=== PATIENT | female | born 1970 | race Caucasian/White ===

== ENCOUNTER 2022-01-16 13:56 | Outpatient (CLI) | payer BC, SELFPAY ==
--- NOTE | 2022-01-16 14:00 | CRLHL7_ITS ---
For Patients: As a result of the Century Cures Act, medical imaging exams and procedure reports are released immediately into your electronic medical record. You may view this report before your referring provider. If you have questions, please contact your health care provider. BILATERAL SCREENING MAMMOGRAM WITH COMPUTER-AIDED DETECTION AND TOMOSYNTHESIS TECHNIQUE: CC and MLO views were obtained. These mammographic images have been obtained using full-field digital technique. These mammographic images were interpreted with the benefit of computer-aided detection. Breast Tomosynthesis was used in this interpretation. COMPARISON FILM: 12/31/20, 12/06/19, 03/19/18. FINDINGS: There are scattered areas of fibroglandular density IMPRESSION: There is no radiographic evidence for malignancy. ASSESSMENT: BI-RADS Category 1: Negative RECOMMENDATION: Routine screening mammogram in 1 year. A lay language report of this examination will be provided to the patient. Gerard Walsh M.D. Diagnostic Radiologist [email or web address] NEGRO/Dictated by: Gerard Walsh MD @ 01/17/2022 8:59:00 AM (Electronically Signed)
== END 2022-01-16 13:57 | disposition home or self-care (01) ==
LOC: MAMMO 13:57
PROVIDERS: PCP Physician Assistant Medical; Visit Provider Physician Assistant Medical
DX: Z12.31 Encounter for screening mammogram for malignant neoplasm of breast (principal)
CPT/HCPCS: 77063; 77067

== ENCOUNTER 2023-02-11 10:02 | Outpatient (CLI) | payer BC, SELFPAY ==
--- OUTSIDE RECORDS SUMMARY | 2023-02-11 10:04 | XMS_ITS | Continuity of Care Document ---
Author Name Unknown Organization [facility] Address [address] [place] [address] Phone Care Team Providers Care Student Assistance Counselor Name Role Phone Yunior Logan Unavailable Unavailable Allergies, Adverse Reactions, Alerts Substance Reaction Status Criticality No Known Allergies Active No Inform ation Medications Medication Instructions Dosage Effective Dates (start - stop) Status Comments ENBREL (unknown strength) Not Available - Active XATMEP (unknown strength) Not Available - Active TRELEGY ELLIPTA (unknown strength) Not Available - Active SERTRALINE HCL (unknown strength) Not Available - Active DOXYCYCLINE MONOHYDRATE (unknown strength) Not Available - Active CELEBREX (unknown strength) Not Available - Active ALBUTEROL SULFATE (unknown strength) Not Available - Active Procedures Procedure Date Office/Outpatient Visit,[place], [facility] 2022 Advance Directives Directive Yes / No Effective Date File Name No Information Encounters Encounter Description Practice Location Reason(s) For Visit Diagnoses Date Provider Providers Copied on Encounter [facility], [address], [place], [id number], [place] tel:[phone] No Information Valeria Mojica. [facility], [address] [place] [address], [address], [place], [id number] , [place]. tel:[phone] Office/Outpat ient Visit,[facility], [address], [place], [id number], [place] tel:[phone] [facility] - Maria De Jesus Other spondylosis, lumbar regionLow back painOther intervertebral disc degeneration, lumbar region 3 Valeria Mojica. [facility], [address] [place] [address], [address], [place], [place], [id number] , [place]. tel:[phone] Referring Provider: Dong Zheng[address], [place], [address]. tel:[phone] Family History Family Member Type Diagnosis Age At Onset No Information Payers Payer name Insurance type Covered democrat ID Authoriza tishanice(s) [facility] [id number] Out Of State [id number] Social History Type Description Quantity Date Captured Comments Sex Female Smoking Status No Information Chief Complaint And Reason For Visit No Information Reason For Referral Reason For Referral No Information History Of Present Illness Encounter Date Complaint History Of Prese nt Illness No Information Functional Status Date Functional Assessmen t No Information Instructions Date Instruction Additional Infor mation No Information Assessments Type Assessment Date No Information Patient Care Teams Name Effective Dates (start - stop) Status Members No Information
--- NOTE | 2023-02-11 10:15 | CRLHL7_ITS ---
For Patients: As a result of the Century Cures Act, medical imaging exams and procedure reports are released immediately into your electronic medical record. You may view this report before your referring provider. If you have questions, please contact your health care provider. BILATERAL SCREENING MAMMOGRAM WITH COMPUTER-AIDED DETECTION AND TOMOSYNTHESIS TECHNIQUE: CC and MLO views were obtained. These mammographic images have been obtained using full-field digital technique. These mammographic images were interpreted with the benefit of computer-aided detection. Breast Tomosynthesis was used in this interpretation. COMPARISON FILM: 01/16/22, 12/31/20, 12/06/19. FINDINGS: There are scattered areas of fibroglandular density IMPRESSION: There is no radiographic evidence for malignancy. ASSESSMENT: BI-RADS Category 1: Negative RECOMMENDATION: Routine screening mammogram in 1 year. A lay language report of this examination will be provided to the patient. Gearrd Walsh M.D. Diagnostic Radiologist [email or web address] NEGRO/Dictated by: Gerard Walsh MD @ 02/11/2023 11:02:00 AM (Electronically Signed)
== END 2023-02-11 10:03 | disposition home or self-care (01) ==
LOC: MAMMO 10:02
PROVIDERS: PCP Physician Assistant Medical; Visit Provider Physician Assistant Medical
DX: Z12.31 Encounter for screening mammogram for malignant neoplasm of breast (principal)
CPT/HCPCS: 77063; 77067

== ENCOUNTER 2023-12-01 08:12 | Outpatient (CLI) | payer BC, SELFPAY ==
--- OUTSIDE RECORDS SUMMARY | 2023-12-02 06:01 | XMS_ITS | Continuity of Care Document ---
Author Organization [facility] Address [address] [place] [address] Phone Care Team Providers Care Inventory Control/Shipping Receiving Name Role Phone Yunior Logan Unavailable Unavailable [...] Available - Active Procedures Procedure Date Office/Outpatient Visit,[facility] 2022 Advance Directives Directive Yes / No Effective Date File Name No Information Encounters Encounter Description Practice Location Reason(s) For Visit Diagnoses Date Provider Providers Copied on Encounter [facility], [address], [place], [id number], [place] tel:[phone] No Information Valeria Mojica. [facility], [address], [address], [place], [id number] , [place]. tel:[phone] Office/Outpat ient Visit,[facility], [address], [place], [id number], [place] tel:[phone] [facility] - Maria De Jesus Other spondylosis, lumbar regionLow back painOther intervertebral disc degeneration, lumbar region 3 Valeria Mojica. [facility], [address], [address], [place], [place], [id number] , [place]. [phone] Referring Provider: Dong Zheng[address], [address]. tel:[phone] Family History Family Member Type Diagnosis Age At Onset No Information Payers Payer name Insurance type Covered republican ID Authoriza tishanice(s) [facility] [id number] [place] Of [place] [id number] Social History Type Description Quantity Date Captured [...]
--- OUTSIDE RECORDS SUMMARY | 2023-12-02 06:01 | XMS_ITS | Encounter Summary ---
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; Primary osteoarthritis of both first carpometacarpal joints; Lateral epicondylitis, right elbow Social History Tobacco Use Types Packs/Day Years Used Date Smoking Tobacco: Never Smokeless Tobacco: Never Alcohol Use Standard Drinks/Week Comments Yes 0 (1 standard drink = 0.6 oz pur e alcohol) Sex and Gender Information Value Date Recorded Sex Assigned at Not on file Gender Identity Not on file Sexual Orientation Not on file documented as of this encounter Progress Notes * Israel Grace MD - 11/02/2023 1:45 PM CDT RHEUMATOLOGY RECHECK This note was generated with voice activated air tank assembler software and may contain typographical and word substitution errors. CC: Follow-up seronegative RA with sicca complex, osteoarthritis of the 1st CMC joints and knees, trochanteric bursitis HPI: I initially saw her in April,. She had a diagnosis of seronegative rheumatoid arthritis in [place] many years ago, later had followed with Dr. Vincent and subsequently established here.She had been treated with prednisone, hydroxychloroquine, methotrexate, Enbrel. She had sicca complex but negative Sjogren serologies. She had osteoarthritis of 1st CMC joints, knees and trochanteric bursitis. Voltaren gel and been expensive. She came to me on methotrexate, Plaquenil and Enbrel and I decided to stop the Plaquenil. We continued methotrexate and Enbrel and she was given Celebrex 200 mg once daily as needed for arthralgia. She is negative for rheumatoid factor, negative CCP, negative extractable nuclear antigens. Hand x-ray showed significant DJD at the 1st CMC joints. She is current on shingles vaccines. She has osteoarthritis at the 1st CMC joints, confirmed on x-rays 2018. She does feel the Celebrex has been helpful for day-to-day arthralgias. She has a history of trochanteric bursitis and right knee anserine bursitis. She is status post-surgery on the right hip arthroscopically for labral tear and femoroacetabular impingement, had reasonably good improvement. She is bothered by the arthritis of the base of the thumbs, uses braces, Voltaren gel, she says things are not bad enough currently to consider cortisone injections but notes that is an option. At her visit March, she was doing well and we reduced her methotrexate from 20 mg weekly down to 15 mg weekly. However in 2023 with more pain at the left 3rd MCP we increase the methotrexate back to 20 mg weekly. She notes some soreness in her ankles with working out. She has genu valgum and some hindfoot valgus. She has been seeing [facility] for evaluation of back pain and sciatica in the right leg, she is scheduled for an epidural and is on gabapentin which has helped somewhat. She notes pain again at the base of both thumbs and also right 5th PIP, likely degenerative in nature. She does use Voltaren gel, Celebrex p.r.n. but not every day. This is a six-month follow-up visit. Lab data October 27, 2023 shows normal creatinine, CBC, AST. Interval history is reviewed. She was still having symptoms of right lateral epicondylitis. She wasdoing stretches icing and so forth. She probably continues to aggravated by doing yd work but it ismanageable. She also notes some soreness left 3rd MCP, went saw on orthopedic doctor at [facility] and [facility], she brought an x-ray on a CD which we will get scanned in but she says it isn't bad enough to warrant an injection or other changes. 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 ADR/ALLERGIES: Updated in EMR OBJECTIVE: VS: Per flow sheet. General: NAD. Eyes: Externally clear. Chest: CTA. Musculoskeletal: All 4 limbs are examined. She has squaring and tenderness bilateral 1st CMC joints, mild tenderness over the left 3rd MCP which was not swollen. She was tender at the right lateral epicondyle, worse with resisted wrist extension Remainder of the joints were unremarkable. 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 Given that this could be an RA manifestation, we will increase the methotrexate from 15 mg weekly back to 20 mg weekly. 2: She is current on relevant monitoring lab tests, we will continue CBC AST creatinine every 3 months. 3: She will continue stretching exercises for her epicondylitis, we discussed the possibility of cortisone injection but for now she would like to hold off. Recheck in 6 months. 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
--- OUTSIDE RECORDS SUMMARY | 2023-12-02 06:01 | XMS_ITS | Encounter Summary ---
Author Organization [facility] Address [address] [place] [address] Care Team Providers Care Public Relations Player Name Role Phone No Primary/Referring, Phy Primary Care Provider Unavailable Reason for Visit * Reason Comments Refill ENBREL SURECLICK 50 MG/ML injection [Pharmacy Med Name: ENBREL SURECLICK PF AUTOINJ 50MG/ML] Encounter Details Date Type Department Care Team (Late st Contact Info) Description 11/12/2023 Refill Rheumatology at [address] [place], [place] [id number] Caty Grace MD [address] [place] [phone] Refill (ENBREL SURECLICK 50 MG/ML injection [Pharmacy Med Name: ENBREL SURECLICK PF AUTOINJ 50MG/ML]) Social History Tobacco Use Types Packs/Day Years Used Date Smoking Tobacco: Never Smokeless Tobacco: Never Alcohol Use Standard Drinks/Week Comments Yes 0 (1 standard drink = 0.6 oz pur e alcohol) Sex and Gender Information Value Date Recorded Sex Assigned at Not on file Gender Identity Not on file Sexual Orientation Not on file documented as of this encounter Nursing Notes * Phoebe Valenzuela RN - 11/12/2023 10:10 AM CDT Disp Refills Start End etanercept (ENBREL SURECLICK) 50 MG/ML pen injection 4 Each 7 11/02/2023 -- Sig - Route: Inject 50 mg subcutaneously once a week. Indications: Rheumatoid Arthritis, M06.00 - Subcutaneous Sent to pharmacy as: Enbrel SureClick 50 MG/ML Subcutaneous Solution Auto- injector (etanercept) Class: E-Prescribing Date/Time Signed: 11/02/2023 13:56 E-Prescribing Status: Receipt confirmed by pharmacy (11/02/2023 1:57 PM CDT) Duplicate request, denied. * Adri Pat Xrwcomm - 11/12/2023 5:05 AM CDT ENBREL SURECLICK 50 MG/ML injection [Pharmacy Med Name: ENBREL SURECLICK PF AUTOINJ 50MG/ML] Biologics -> Unable to determine if patient is due for a renewal, please review. -> Unable to determine if sig has changed, review required. -> RBC is abnormal (3.95 m/cmm lies outside 4.0 m/cmm - 5.2 m/cmm) -> WBC is abnormal (3.9 k/cmm lies outside 4.0 k/cmm - 11.0 k/cmm) -> Refill x 12 months, qty: 12, refills: 3 (until due for a(n) HCT check, HGB check, PLT check, RBC check and WBC check) Last qualifying visit: 11/02/2023 (in Rheumatology) Next scheduled visit: 05/04/2024 (in Rheumatology) Last ordered by CATY GRACE (10 days ago) QTY: 4, Refills: 7, Sig: inject 50 mg subcutaneously once a week. indications: rheumatoid arthritis, m06.00 (changed) HCT: 37 % on 10/27/2023 HGB: 12.3 g/dL on 10/27/2023 PLT: 177 k/cmm on 10/27/2023 RBC: 3.95 m/cmm on 10/27/2023 WBC: 3.9 k/cmm on 10/27/2023 [facility] Embedded Refills, Reference: [id number], 11/12/2023 5:05:20 AM CDT, Pool: RHEUM PN REFILL [[id number]] ([id number]) * Pat Rush - 11/12/2023 5:05 AM CDT The following lab order(s) may be associated with the following Patient Result Comment (Entered by Caty Grace MD at 10/28/2023 6:16 AM): COMPLETE BLOOD COUNT-W/DIFF Thank you for doing your methotrexate monitoring labs tests. They look fine and no changes are needed at this time. Continue labs about every 3 months, unless we've discussed a different frequency. documented in this encounter Plan of Treatment Upcoming Encounters Date Type Department Care Team (Late st Contact Info) Description 05/04/2024 11:15 AM SALT GRINDER Appointment Rheumatology at [facility] [address] [address] Caty Grace MD [facility] [place] [address] documented as of this encounter Visit Diagnoses Diagnosis Seronegative rheumatoid arthritis (HRC) Rheumatoid arthritis documented in this encounter Care Teams Public Relations Player Relationship Specialty Start Date End Date No Primary/Referring, Phy PCP - General 04/12/19 documented as of this encounter
--- OUTSIDE RECORDS SUMMARY | 2023-12-02 06:01 | XMS_ITS | Clinical Summary ---
Author Organization [facility] Address [address] [place] [address] Care Team Providers Care Seafood Farmer Name Role Phone No Primary/Referring, Phy Primary Care Provider Unavailable Source Comments You are receiving this document as you are listed as the primary care provider,follow-up provider, or the patient has been referred to you for consultation.This is in compliance with the Medicare and[facility] EHR Incentive Program,which states Providers who transition their patient to another setting of careor provider of care or refers their patient to another provider of care shouldprovide summary care record for each transition of care or referral. [employer] Allergies Active Allergy Reactions Criticality Noted Date Comments Kiwi Extract Other, see comments 10/07/2021 Irritation in mouth Medications Medication Sig Dispensed Refills Start Date End Date Status ALBUterol sulfate HFA 108 (90 Base) MCG/ACT inhaler Inhale 1-2 Puffs every 4 hours as needed for Wheezing. Active cycloSPORINE (RESTASIS) 0.05 % eye drop emulsion Place 1 Drop into both eyes two times a day. Active dicyclomine (BENTYL) 10 MG capsule Take 1 Capsule (10 mg) by mouth every 24 hours as needed. Active omeprazole (PRILOSEC) 20 MG capsule Take 1 Capsule (20 mg) by mouth daily. Take 1 hour before a meal. Active folic acid 400 MCG tablet Take 2.5 Tablets (1 mg) by mouth daily. Active diclofenac (VOLTAREN) 1 % gel Apply 2 g to skin 4 times daily as needed for Other (hand, knee, other joint pain). 100 g 3 10/03/2020 Active TREL ELLIPTA 100-62.5-25 MCG/INH AEPB Inhale 1 Puff daily. 01/22/2021 Ac tibreonna RIZVITRI AEROSPHERE 160-9-4.8 MCG/ACT AERO Inhale 2 Puffs two times a day. 07/22/2022 Active halobetasol (ULTRAVATE) 0.05 % ointment Apply 1 Application topically daily. 07/18/2022 Active hydrOXYzine pamoate (VISTARIL) 25 MG capsule Take 1 Capsule (25 mg) by mouth three times a day as needed. 07/17/2022 Active methocarbamol (ROBAXIN) 500 MG tablet Take 1 Tablet (500 mg) by mouth two times a day. 08/27/2022 Active traZODone (DESYREL) 50 MG tablet Take 1-3 Tablets (50-150 mg) by mouth at bedtime as needed. 07/12/2022 Active venlafaxine (EFFEXOR) 75 MG tablet Take 1 Tablet (75 mg) by mouth daily. 09/09/2022 Active celecoxib (CELEBREX) 200 MG capsule Take 1 Capsule (200 mg) by mouth every 24 hours as needed for Pain. 90 Capsule 3 05/04/2023 Active TEZSPIRE 210 MG/1.91ML SOAJ pen Inject 1.91 mL (210 mg) subcutaneously every 4 weeks. 10/31/2023 Active methotrexate 2.5 MG tabletIndications :Rheumatoid Arthritis Take 8 Tablets (20 mg) by mouth once every week. Indications: Rheumatoid Arthritis 96 Tablet 3 11/02/2023 Active etanercept (ENBREL SURECLICK) 50 MG/ML pen injectionIndicati ons:Rheumatoid Arthritis,M06.00 Inject 50 mg subcutaneously once a week. Indications: Rheumatoid Arthritis, M06.00 4 Each 7 11/02/2023 Active Active Problems Patient Care Coordination No te Formatting of this note migh t be different from the original. Lori nurse leigh [facility] Nurse case management program Phone [phone] ask to speak to first available nurse. Problem Noted Date Diagnosed Date Disorder of rotator cuff, left 09/06/2018 Seronegative rheumatoid arthritis 05/10/2018 Sicca syndrome 05/10/2018 Asthma, mild intermittent 05/10/2018 Irritable bowel syndrome wit h both constipation and diarrhea 05/10/2018 Trochanteric bursitis, right hip 05/10/2018 Primary osteoarthritis of both first carpometaca rpal joints 05/10/2018 group home current use of therapeutic drug 2018 Encounters Date Type Department Care Team Description 11/12/2023 Refill Rheumatology at [facility] [address] [place] [id number] Israel Grace MD Refill (ENBREL SURECLICK 50 MG/ML injection [Pharmacy Med Name: ENBREL SURECLICK PF AUTOINJ 50MG/ML]) 11/02/2023 1:45 PM CDT Office Visit Rheumatology at 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; Primary osteoarthritis of both first carpometacarpal joints; Lateral epicondylitis, right elbow 10/27/2023 11:00 AM CDT Lab Visit [address] [phone] Seronegative rheumatoid arthritis (HRC) from Last 3 Months Immunizations Name Administration Dates Next Due Flu Vac (3+ yrs) 12/15/2008 Flu Vac Preserv Free (3+yrs) 01/16/2014, 12/20/2012,12/31/2011,2010 Flublok (RIV4) 01/07/2019 Influenza (Flucelvax), Prese rv Free QIV 12/22/2022,12/19/2021 Influenza IIV4 (Quadrivalent ) 0.5mL ([id number]) 12/23/2020,01/13/2020,01/04/2018,2016,01/03/2016,01/02/2015 Influenza, Unspecified Formulation 12/23/2020 Moderna Bivalent 12+ 12/26/2021 Moderna Monovalent 12+ 06/25/2021,2020,07/13/2020,2020 PCV13 (Prevnar) 01/13/2017 PCV20 ([id number]) 04/10/2023 PPSV23 (Pneumovax) 11/29/2009 Tdap 05/21/2011 Zoster RZV (Shingrix) 02/21/2019,11/29/2018,10/29 Social History Tobacco Use Types Packs/Day Years Used Date Smoking Tobacco: Never Smokeless Tobacco: Never Alcohol Use Standard Drinks/Week Comments Yes 0 (1 standard drink = 0.6 oz pur e alcohol) Sex and Gender Information Value Date Recorded Sex Assigned at Not on file Gender Identity Not on file Sexual Orientation Not on file Last Filed Vital Signs Vital Sign Reading Time Taken Comments Blood Pressure 114/91 10/07/2021 12:11 PM CDT Pulse 87 10/07/2021 12:11 PM CDT Temperature 36.6 ??C (97.8 ??F) 10/07/2021 12:11 PM C DT Respiratory Rate - - Oxygen Saturation - - Inhaled Oxygen Concentration - - Weight 88.9 kg (196 lb) 04/04/2020 11:40 AM BRAIN PICKER Height - - Body Mass Index - - Plan of Treatment Upcoming Encounters Date Type Department Care Team (Late st Contact Info) Description 05/04/2024 11:15 AM BRAIN PICKER Appointment Rheumatology at [facility] [address] [phone] Israel Grace MD [facility] [place], [place] [phone] Health Maintenance Due Date Last Done Comments Cervical Cancer Screening Due 1968 Colon Cancer Screening Plan Due 1968 Mammogram 1968 HIV Screening (Preventive Services) 1984 Adult Preventive Visit 1986 HepB (1) 10/14/1987 Cholesterol 2013 DTaP/Tdap/Td (2 - Tdap) 05/21/2021 05/21/2011 COVID-19 Vaccine ( season) 2023 12/26/2021, 06/25/2021, 11/15/2020, Additional history exists Influenza (#1) 2023 12/22/2022, 11/29, 12/23/2020, Additional history exists Hep C Screening (Preventive Services) Completed 05/10/2018 Zoster/Shingles Completed 02/21/2019, 0 04/2018, 11/18/2018 Pneumococcal Completed 04/10/2023, 12/28, 11/29/2009 HepA Aged Out No longer eligi ble based on patient's age to complete this topic Hib Aged Out No longer eligi ble based on patient's age to complete this topic IPV (Polio) Aged Out No longer eligi ble based on patient's age to complete this topic MCV4 Aged Out No longer eligi ble based on patient's age to complete this topic Procedures Procedure Name Priority Date/Time Associated Diagnosis Comments COMPLETE BLOOD COUNT-W/DIFF Routine 10/27/2023 11:05 AM CDT Seronegative rheumatoid arthritis (HRC) CBC AND DIFFERENTIAL PANEL Routine 10/27/2023 11:05 AM CDT Seronegative rheumatoid arthritis (HRC) AST Routine 10/27/2023 11:05 AM CDT Seronegative rheumatoid arthritis (HRC) CREATININE / GFR Routine 10/27/2023 11:0 5 AM CDT Seronegative rheumatoid arthritis (HRC) HEPATITIS C ANTIBODY, WITH REFLEX Routine 05/10/2018 10:15 AM BRAIN PICKER Seronegative rheumatoid arthritis (HRC) from Last 3 Months or Most Recently Relevant to Health Maintenance Results * Creatinine / GFR (10/27/2023 11:05 AM CDT) Creatinine 0.64 0.55 - 1.02 mg/dL 10/27/2023 5:38 PM CDT [facility] GFR, Estimated >60 >60 mL/min/1.7 3m2 10/27/2023 5:38 PM CDT [facility] Blood Venipuncture / Unknown 10/27/2023 11:05 AM CDT 10/27/2023 11:05 AM CDT Israel Grace MD LAB_1 [facility] [address] [place] [phone] * Complete Blood Count-W/Diff (10/27/2023 11:05 AM [facility]) [facility] Signature WBC 3.9 3.5 - 10.5 x10(9)/L 10/27/2023 11:09 AM [facility] RBC 3.95 3.90 - 5.03 x10(12)/L 10/27/2023 11:09 AM [facility] Hemoglobin 12.3 12.0 - 15.5 g/dL 10/27/2023 11:09 AM [facility] HCT 37.0 34.9 - 44.5 % 10/27/2023 11:09 AM [facility] MCV 93.7 80.0 - 100.0 fL 10/27/2023 11:09 AM [facility] MCH 31.1 27.6 - 33.3 pg 10/27/2023 11:09 AM [facility] MCHC 33.2 31.5 - 35.2 g/dL 10/27/2023 11:09 AM [facility] RDW 14.0 11.9 - 15.5 % 10/27/2023 11:09 AM [facility] Platelets 177 150 - 450 x10(9)/L 10/27/2023 11:09 AM [facility] Neutrophil Absolute 2.1 1.7 - 7.0 10(9)/L 10/27/2023 11:09 AM [facility] Lymphocyte Absolute 1.3 1.0 - 4.8 10(9)/L 10/27/2023 11:09 AM [facility] Monocyte Absolute 0.4 0.2 - 0.9 10(9)/L 10/27/2023 11:09 AM [facility] Eosinophil Absolute 0.1 0.0 - 0.5 10(9)/L 10/27/2023 11:09 AM [facility] Basophil Absolute 0.0 0.0 - 0.3 10(9)/L 10/27/2023 11:09 AM [facility] Immature Granulocyte % 0.3 0.0 - 0.5 % 10/27/2023 11:09 AM [facility] Blood Venipuncture / Unknown 10/27/2023 11:05 AM CDT 10/27/2023 11:05 AM CDT Israel Grace MD LAB_1 [facility] [address] [place] [phone] * AST (10/27/2023 11:05 AM CDT) AST (SGOT) 25 10 - 40 U/L 10/27/2023 5:38 PM CDT [facility] Blood Venipuncture / Unknown 10/27/2023 11:05 AM CDT 10/27/2023 11:05 AM CDT Israel Grace MD LAB_1 Performing Organization Address [facility] Co de Phone Number [facility] [address] [place] [address] * HCAB - Hepatitis C Virus Indira with Reflex In-House (05/10/2018 10:15 AM BRAIN PICKER) Hepatitis C Antibody Nonreactive Nonreactive PN SOFT 05/10/2018 10:1 5 AM BRAIN PICKER 05/10/2018 12:34 PM BRAIN PICKER Narrative PN SOFT - 05/10/2018 2:42 PM BRAIN PICKER Performed at [address] [address] CLIA number [id number] Israel Grace MD LAB_1 Performing Organization Address [facility] Co de Phone Number PN SOFT [facility] [place] [address] from Last 3 Months or Most Recently Relevant to Health Maintenance Care Teams Seafood Farmer Relationship Specialty Start Date End Date No Primary/Referring, Phy PCP - General 04/12/19
--- OUTSIDE RECORDS SUMMARY | 2023-12-02 06:01 | XMS_ITS | Encounter Summary ---
[facility] Address [address] [place] [address] Care Team Providers Care Sap Data Architect Name Role Phone No Primary/Referring, Phy Primary Care Provider Unavailable Encounter Details Date Type Department Care Team (Late st Contact Info) Description 10/27/2023 11:00 AM CDT Lab Visit [facility] [id number] [place] [phone] Seronegative rheumatoid arthritis (HRC) Social History Tobacco Use Types Packs/Day Years Used Date Smoking Tobacco: Never Smokeless Tobacco: Never Alcohol Use Standard Drinks/Week Comments Yes 0 (1 standard drink = 0.6 oz pur e alcohol) Sex and Gender Information Value Date Recorded Sex Assigned at Not on file Gender Identity Not on file Sexual Orientation Not on file documented as of this encounter Plan of Treatment Upcoming Encounters Date Type Department Care Team (Late Contact Info) Description 05/04/2024 11:15 AM FOUNDATION STAGE TEACHER Appointment Rheumatology at [facility] [address] [address] Israel Grace MD [address] [place], [place] [phone] documented as of this encounter Procedures Procedure Name Priority Date/Time Associated Diagnosis Comments CBC AND DIFFERENTIAL PANEL Routine 10/27/2023 11:05 AM CDT Seronegative rheumatoid arthritis (HRC) CREATININE / GFR Routine 10/27/2023 11:0 5 AM CDT Seronegative rheumatoid arthritis (HRC) COMPLETE BLOOD COUNT-W/DIFF Routine 10/27/2023 11:05 AM CDT Seronegative rheumatoid arthritis (HRC) AST Routine 10/27/2023 11:05 AM CDT Seronegative rheumatoid arthritis (HRC) documented in this encounter Results * Complete Blood Count-W/Diff (10/27/2023 11:05 AM CDT) [facility] WBC 3.9 3.5 - 10.5 x10(9)/L 10/27/2023 11:09 AM [facility] RBC 3.95 3.90 - 5.03 x10(12)/L 10/27/2023 11:09 AM [facility] Hemoglobin 12.3 12.0 - 15.5 g/dL 10/27/2023 11:09 AM [facility] HCT 37.0 34.9 - 44.5 % 10/27/2023 11:09 AM [facility] MCV 93.7 80.0 - 100.0 fL 10/27/2023 11:09 AM [facility] MCH 31.1 27.6 - 33.3 pg 10/27/2023 11:09 AM [facility] MCHC 33.2 31.5 - 35.2 g/dL 10/27/2023 11:09 AM [facility] RDW 14.0 11.9 - 15.5 % 10/27/2023 11:09 AM [facility] Platelets 177 150 - 450 x10(9)/L 10/27/2023 11:09 AM [facility] Neutrophil Absolute 2.1 1.7 - 7.0 10(9)/L 10/27/2023 11:09 AM [facility] Lymphocyte Absolute 1.3 1.0 - 4.8 10(9)/L 10/27/2023 11:09 AM [facility] Monocyte Absolute 0.4 0.2 - 0.9 10(9)/L 10/27/2023 11:09 AM [facility] Eosinophil Absolute 0.1 0.0 - 0.5 10(9)/L 10/27/2023 11:09 AM CDT [facility] Basophil Absolute 0.0 0.0 - 0.3 10(9)/L 10/27/2023 11:09 AM CDT [facility] Immature Granulocyte % 0.3 0.0 - 0.5 % 10/27/2023 11:09 AM CDT [facility] Blood Venipuncture / Unknown 10/27/2023 11:05 AM CDT 10/27/2023 11:05 AM CDT Isarel Grace MD LAB_1 Performing Organization Address City/[facility]/ZIP Co de Phone Number [facility] [address] [place] [phone] * AST (10/27/2023 11:05 AM CDT) AST (SGOT) 25 10 - 40 U/L 10/27/2023 5:38 PM CDT [facility] Blood Venipuncture / Unknown 10/27/2023 11:05 AM CDT 10/27/2023 11:05 AM CDT Israel Grace MD LAB_1 Performing Organization Address [facility] Phone Number [facility] [address] [place] [address] * Creatinine / GFR (10/27/2023 11:05 AM CDT) Creatinine 0.64 0.55 - 1.02 mg/dL 10/27/2023 5:38 PM CDT [facility] GFR, Estimated >60 >60 mL/min/1.7 3m2 10/27/2023 5:38 PM CDT [facility] Blood Venipuncture / Unknown 10/27/2023 11:05 AM CDT 10/27/2023 11:05 AM CDT Israel Grace MD LAB_1 Performing Organization Address [facility] Co de Phone Number [facility] [address] [place] [address] documented in this encounter Visit Diagnoses Diagnosis Seronegative rheumatoid arthritis (HRC) Rheumatoid arthritis documented in this encounter Care Teams Sap Data Architect Relationship Specialty Start Date End Date No Primary/Referring, Phy PCP - General 04/12/19 documented as of this encounter
--- OUTSIDE RECORDS SUMMARY | 2023-12-02 06:02 | XMS_ITS | Continuity of Care Document ---
Author Organization [facility] Address [address] [place] [address] Phone Care Team Providers Care Nicking Machine Operator Name Role Phone Cecille Fuentes MD Unavailable Unavailable Allergies, Adverse Reactions, Alerts Substance Reaction Status Criticality No Known Allergies Active No Inform ation Medications Medication Instructions Dosage Effective Dates (start - stop) Status Comments Enbrel SureClick 50 mg/mL (0.98 mL) subcutaneous pen injector inject 1 milliliter (50MG) by subcutaneous route every week - Active 1 month supply hydroxychloroquine 200 mg tablet take 1 tablet by oral route 2 times every day 200 MG - Active methotrexate sodium 2.5 mg tablet take 8 Tablet by oral route every week 20 MG - Active MTX Support 0.5 mg-1 mg Tab take 1 tablet by oral route every day 1.00 tablet - Active TheraCal D2000 250 mg calcium-500 unit Tab take 2 tabs twice a day - Active Flonase 50 mcg/actuation Nasal [place] inhale 1 spray (50MCG) by intranasal route 2 times every day in each nostril as needed 50 MCG - Active OMEPRAZOLE (unknown strength) take 1 Capsule by oral route every day before a meal Not Available - Active albuterol sulfate HFA 90 mcg/actuation Aerosol Inhaler inhale 2 puff by inhalation route every 6 hours as needed 2 puff - Active Procedures Procedure Date Office/Outpatient Visit, Est Routine Venipuncture Assay Of Serum Albumin Assay Of Creatinine Transferase (Ast) (Sgot) Alanine Amino (Alt) (Sgpt) Complete Cbc, Automated Office/Outpatient Visit, Est Routine Venipuncture Complete Cbc, Automated Assay Of Serum Albumin Assay Of Creatinine Transferase (Ast) (Sgot) Alanine Amino (Alt) (Sgpt) Office/Outpatient Visit, Est Routine Venipuncture Complete Cbc, Automated Assay Of Serum Albumin Assay Of Creatinine Transferase (Ast) (Sgot) Alanine Amino (Alt) (Sgpt) Office/Outpatient Visit, Est Routine Venipuncture Complete Cbc, Automated Assay Of Serum Albumin Assay Of Creatinine Transferase (Ast) (Sgot) Alanine Amino (Alt) (Sgpt) Office/Outpatient Visit, Est Routine Venipuncture Complete Cbc, Automated Assay Of Serum Albumin Assay Of Creatinine Transferase (Ast) (Sgot) Alanine Amino (Alt) (Sgpt) Dxa Bone Density, Axial Office/Outpatient Visit, Est Routine Venipuncture Complete Cbc, Automated Assay Of Serum Albumin Assay Of Creatinine Transferase (Ast) (Sgot) Alanine Amino (Alt) (Sgpt) Office/Outpatient Visit, Est Routine Venipuncture Complete Cbc, Automated Assay Of Serum Albumin Assay Of Creatinine Transferase (Ast) (Sgot) Alanine Amino (Alt) (Sgpt) Office/Outpatient Visit, Est Routine Venipuncture Complete Cbc WAuto Diff Wbc Assay Of Serum Albumin Assay Of Creatinine Transferase (Ast) (Sgot) Alanine Amino (Alt) (Sgpt) Office/Outpatient Visit, Est Routine Venipuncture Complete Cbc WAuto Diff Wbc Assay Of Serum Albumin Assay Of Creatinine Transferase (Ast) (Sgot) Alanine Amino (Alt) (Sgpt) Office/Outpatient Visit, Est Routine Venipuncture Complete Cbc WAuto Diff Wbc Assay Of Serum Albumin Assay Of Creatinine Transferase (Ast) (Sgot) Alanine Amino (Alt) (Sgpt) Office/Outpatient Visit, Est Routine Venipuncture Complete Cbc WAuto Diff Wbc Assay Of Serum Albumin Assay Of Creatinine Transferase (Ast) (Sgot) Alanine Amino (Alt) (Sgpt) Office/Outpatient Visit, Est Routine Venipuncture Complete Cbc WAuto Diff Wbc Assay Of Serum Albumin Assay Of Creatinine Transferase (Ast) (Sgot) Alanine Amino (Alt) (Sgpt) Dxa Bone Density, Axial Office/Outpatient Visit, Est Routine Venipuncture Complete Cbc WAuto Diff Wbc Assay Of Serum Albumin Assay Of Creatinine Transferase (Ast) (Sgot) Alanine Amino (Alt) (Sgpt) Office/Outpatient Visit, Est Routine Venipuncture Complete Cbc WAuto Diff Wbc Assay Of Serum Albumin Assay Of Creatinine Transferase (Ast) (Sgot) Alanine Amino (Alt) (Sgpt) Office/Outpatient Visit, Est Routine Venipuncture Complete Cbc WAuto Diff Wbc Rbc Sed Rate, Nonautomated CReactive Protein Assay Of Serum Albumin Assay Of Creatinine Transferase (Ast) (Sgot) Alanine Amino (Alt) (Sgpt) Office/Outpatient Visit, Est Routine Venipuncture Complete Cbc WAuto Diff Wbc Assay Of Serum Albumin Assay Of Creatinine Transferase Ast Sgot Alanine Amino (Alt) (Sgpt) Office/Outpatient Visit, Est Routine Venipuncture Complete Cbc WAuto Diff Wbc Assay Of Serum Albumin Assay Of Creatinine Transferase Ast Sgot Alanine Amino Alt Sgpt Office/Outpatient Visit, Est Routine Venipuncture Complete Cbc WAuto Diff Wbc Assay Of Serum Albumin Assay Of Creatinine Transferase Ast Sgot Alanine Amino Alt Sgpt Office/Outpatient Visit, Est Routine Venipuncture Complete Cbc WAuto Diff Wbc Assay Of Serum Albumin Assay Of Creatinine Transferase Ast Sgot Alanine Amino Alt Sgpt Office/Outpatient Visit, Est Routine Venipuncture Complete Cbc WAuto Diff Wbc Assay Of Serum Albumin Assay Of Creatinine Transferase Ast Sgot Alanine Amino Alt Sgpt Dxa Bone Density, Axial Advance Directives Directive Yes / No Effective Date File Name No Information Encounters Encounter Description Practice Location Reason(s) For Visit Diagnoses Date Provider Providers Copied on Encounter [facility] , [address], [place], [address], [place] tel:[phone] [facility] No Information 0 Gina Oden. [address], [address], [place], [address], [place]. tel:[phone] [facility] , [address], [place], [address], [place] tel:[phone] [facility] , No Information 9 Melisa Marroquin. [facility] [address], [place], [address], [place]. tel:[phone] Office/Outpa tient Visit, Est [facility] , [address], [place], [address], [place] tel:[phone] [facility] , Rheumatoid arthritis (chief complaint) Seronegative RAOA of 1st carpometacar pal jointSjogren syndromeOste openiaHigh risk medication monitoring 8 Melisa Marroquin. [facility] [address], [place], [address], [place]. tel:[phone] Referring Provider: Lopez Ash, [facility] [address], [place], [address]. tel:[phone] Office/Outpa tient Visit, Est [facility] , [address], [place], [address], [place] tel:[phone] [facility] , Rheumatoid arthritis (chief complaint) Seronegative RAOA of 1st carpometacar pal jointSjogren syndromeOste openiaHigh risk medication monitoring 8 Melisa Marroquin. [facility] [address], [place], [address], [place]. tel:[phone] Referring Provider: Lopez Ash, [facility] [address], [place], [address]. tel:[phone] Office/Outpa tient Visit, Est [facility] , [address], [place], [address], [place] tel:[phone] [facility] , Rheumatoid arthritis (chief complaint) Seronegative RAOA of 1st carpometacar pal jointSjogren syndromeOste openiaHigh risk medication monitoring 8 Melisa Marroquin. [facility] [address], [place], [address], [place]. tel:[phone] Referring Provider: Lopez Ash, [facility] [address], [place], [address]. tel:[phone] Office/Outpa tient Visit, Est [facility] , [address], [place], [address], [place] tel:[phone] [facility] , Rheumatoid arthritis (chief complaint) Seronegative RAOA of 1st carpometacar pal jointSjogren syndromeOste openiaHigh risk medication monitoring 7 eMlisa Marroquin. [facility] [address], [place], [address], [place]. tel:[phone] Referring Provider: Lopez Ash, [facility] [address], [place], [address]. tel:[phone] Office/Outpa tient Visit, Est [facility] , [address], [place], [address], [place] tel:[phone] [facility] , Rheumatoid arthritis (chief complaint) Seronegative RAOA of 1st carpometacar pal jointSjogren syndromeOste openiaHigh risk medication monitoring [facility] Lopez. [facility] [address], [place], [address], [place]. tel:[phone] Referring Provider: Lopez Ash, [facility] [address], [place], [address]. tel:[phone] [facility] , [address], [place], [address], [place] tel:[phone] [facility] , Osteopenia [facility] Lopez. [facility] [address], [place], [address], [place]. tel:[phone] Referring Provider: Lopez Ash, [facility] [address], [place], [address]. tel:[phone] Office/Outpa tient Visit, Est [facility] , [address], [place], [address], [place] tel:[phone] [facility] , Rheumatoid arthritis (chief complaint) Seronegative RAOA of 1st carpometacar pal jointSjogren syndromeOste openiaHigh risk medication monitoring [facility] Lopez. [facility] [address], [place], [address], [place]. tel:[phone] Referring Provider: Lopez Ash, [facility] [address], [place], [address]. tel:[phone] Office/Outpa tient Visit, Est [facility] , [address], [place], [address], [place] tel:[phone] [facility] , Rheumatoid arthritis (chief complaint) Sjogren syndromeOA of 1st carpometacar pal jointOsteope niaHigh risk medication monitoringSe ronegative RA 6 Melisa Marroquin. [facility] [address], [place], [address], [place]. tel:[phone] Referring Provider: Lopez Ash, [facility] [address], [place], [address]. tel:[phone] Office/Outpa tient Visit, Est [facility] , [address], [place], [address], [place] tel:[phone] [facility] , Rheumatoid arthritis (chief complaint) Seronegative RASjogren syndromeOA of 1st carpometacar pal jointOsteope niaTrochante sterling bursitis of right hipHigh risk medication monitoring 6 Melisa Devlinad. [facility] [address], [place], [address], [place]. tel:[phone] Referring Provider: Lopez Ash, [facility] [address], [place], [address]. tel:[phone] Office/Outpa tient Visit, Est [facility] , [address], [place], [address], [place] tel:[phone] [facility] , Rheumatoid arthritis (chief complaint) Seronegative RASjogren syndromeOA of 1st carpometacar pal jointOsteope niaTrochante sterling bursitis of right hipHigh risk medication monitoring 6 Melisa Marroquin. [facility] [address], [place], [address], [place]. tel:[phone] Referring Provider: Lopez Ash, [facility] [address], [place], [address]. tel:[phone] Office/Outpa tient Visit, Est [facility] , [address], [place], [address], [place] tel:[phone] [facility] , Rheumatoid arthritis (chief complaint) Sj???gren's syndromeRheu matoid ArthritisOst eoarthrosis, localized, primary, involving handOsteopen iaTherapeuti c Drug Monitoring Melisa Marroquin. [facility] [address], [place], [address], [place]. tel:[phone] Referring Provider: Lopez Ash, [facility] [address], [place], [address]. tel:[phone] Office/Outpa tient Visit, Est [facility] , [address], [place], [address], [place] tel:[phone] [facility] , Rheumatoid arthritis (chief complaint) Sj???gren's syndromeRheu matoid ArthritisOst eoarthrosis, localized, primary, involving handOsteopen iaTherapeuti c Drug Monitoring Melisa Marroquin. [facility] [address], [place], [address], [place]. tel:[phone] Referring Provider: Lopez Ash, [facility] [address], [place], [address]. tel:[phone] Office/Outpa tient Visit, Est [facility] , [address], [place], [address], [place] tel:[phone] [facility] , Rheumatoid arthritis (chief complaint) Rheumatoid ArthritisOst eoarthrosis, localized, primary, involving handSj???gre n's syndromeTher apeutic Drug MonitoringOs teopenia 5 Melisa Marroquin. [facility] [address], [place], [address], [place]. tel:[phone] Referring Provider: Lopez Ash, [facility] [address], [place], [address]. tel:[phone] [facility] , [address], [place], [address], [place] tel:[phone] [facility] , No Information 5 Melisa Marroquin. [facility] [address], [place], [address], [place]. tel:[phone] Referring Provider: Lopez Ash, [facility] [address], [place], [address]. tel:[phone] Office/Outpa tient Visit, Est [facility] , [address], [place], [address], [place] tel:[phone] [facility] , Rheumatoid Arthritis (chief complaint) Rheumatoid ArthritisDis order of bone and cartilage, unspecifiedT herapeutic Drug MonitoringSi cca syndromeOste oarthrosis, localized, primary, involving hand 4 Melisa Marroquin. [facility] [address], [place], [address], [place]. tel:[phone] Referring Provider: Lopez Ash, [facility] [address], [place], [address]. tel:[phone] Office/Outpa tient Visit, Est [facility] , [address], [place], [address], [place] tel:[phone] [facility] , Rheumatoid Arthritis (chief complaint) Rheumatoid ArthritisThe rapeutic Drug MonitoringDi sorder of bone and cartilage, unspecifiedA nemia, Iron DeficiencySi cca syndrome 4 Melisa Marroquin. [facility] [address], [place], [address], [place]. tel:[phone] Referring Provider: Lopez Ash, [facility] [address], [place], [address]. [phone] Office/Outpa tient Visit, Est [facility] , [address], [place], [address], [place] tel:[phone] [facility] , Rheumatoid Arthritis (chief complaint) Rheumatoid ArthritisThe rapeutic Drug MonitoringSi cca syndromeDiso rder of bone and cartilage, unspecifiedA nemia, Iron Deficiency 4 Melisa Marroquin. [facility] [address], [place], [address], [place]. tel:[phone] Referring Provider: Lopez Ash, [facility] [address], [place], [address]. [phone] Office/Outpa tient Visit, Est [facility] , [address], [place], [address], [place] tel:[phone] [facility] , Rheumatoid Arthritis (chief complaint) Rheumatoid ArthritisDis order of bone and cartilage, unspecifiedS icca syndromeTher apeutic Drug Monitoring 0 3 Melisa Kwok [facility] [address], [place], [address], [place]. tel:[phone] Referring Provider: Lopez Ash, [facility] [address], [place], [address]. tel:[phone] Office/Outpa tient Visit, Est [facility] , [address], [place], [address], [place] tel:[phone] [facility] , Rheumatoid Arthritis (chief complaint) Rheumatoid ArthritisDis order of bone and cartilage, unspecifiedS icca syndromeTher apeutic Drug Monitoring [facility] Lopez. [facility] [address], [place], [address], [place]. tel:[phone] Referring Provider: Lopez Ash, [facility] [address], [place], [address]. tel:[phone] Office/Outpa tient Visit, Est [facility] , [address], [place], [address], [place] tel:[phone] [facility] , Rheumatoid Arthritis (chief complaint) Rheumatoid ArthritisSic ca syndromeDiso rder of bone and cartilage, unspecifiedT herapeutic Drug MonitoringOt her bursitis disordersOst eoarthrosis, localized, primary, involving hand Jun- 3 [facility] Lopez. [facility] [address], [place], [address], [place]. tel:[phone] Referring Provider: Lopez Ash, [facility] [address], [place], [address]. tel:[phone] Office/Outpa tient Visit, Est [facility] , [address], [place], [address], [place] tel:[phone] [facility] , Rheumatoid Arthritis (chief complaint) Rheumatoid ArthritisDis order of bone and cartilage, unspecifiedT herapeutic Drug MonitoringOs teoarthrosis , localized, primary, involving hand 2 [facility] Lopez. [facility] [address], [place], [address], [place]. tel:[phone] Referring Provider: Lopez Ash, [facility] [address], [place], [address]. tel:[phone] Office/Outpa tient Visit, Est [facility] , [address], [place], [address], [place] tel:[phone] [facility] , Rheumatoid Arthritis (chief complaint) Rheumatoid ArthritisSic ca syndromeDiso rder of bone and cartilage, unspecifiedT herapeutic Drug Monitoring 2 [facility] Lopez. [facility] [address], [place], [address], [place]. tel:[phone] Referring Provider: Lopez Ash, [facility] [address], [place], [address]. tel:[phone] [facility] , [address], [place], [address], [place] tel:[phone] [facility] , No Information 2 [facility] Lopez. [facility] [address], [place], [address], [place]. tel:[phone] Referring Provider: Lopez Ash, [facility] [address], [place], [address]. tel:[phone] Family History Family Member Type Diagnosis Age At Onset Problem (finding) No family hist ory of Rheumatoid arthritis Payers Payer name Insurance type Covered green party ID Hugo ambrosio(s) [facility] [id number] Social History Type Description Quantity Date Captured Comments Alcohol Use Details Unknown Caffeine Use Details Unknown Tobacco Use Status No Information Smoking Status No Information Sex Female Chief Complaint And Reason For Visit No Information Reason For Referral Reason For Referral No Information Plan Of Treatment Date Type Action Status Referral Ordered: [facility] (related to OA of 1st carpometacarpal joint) ordered Referral Referred To: [facility] [address] [place] [address] [phone] Ordered: Referrals: [facility]. Consult ordered History Of Present Illness Encounter Date Complaint History Of Prese nt Illness Rheumatoid arthritis Rheumatoid arthritis Rheumatoid arthritis Rheumatoid arthritis Rheumatoid arthritis Rheumatoid arthritis Rheumatoid arthritis Rheumatoid arthritis Rheumatoid arthritis Rheumatoid arthritis Rheumatoid arthritis Rheumatoid arthritis Functional Status Date Functional Assessmen t No Information Instructions Date Instruction Additional Infor jarek I will continue Ther aCal D program B. She is doing bone exercises. I will repeat BMD in May 2016. Related to Osteopenia Patient will continu e same medications for now. Related to Rheumatoid Arthritis I will check CBC/Dif f and DMARD panel today. Patient will get once a year eye exam while being on plaquenil. Patient is on folic acid 1 mg a day. Related to Therapeutic Drug Monitoring Assessments Type Assessment Date No Information Patient Care Teams Name Effective Dates (start - stop) Status Members No Information
== END 2023-12-01 08:13 | disposition home or self-care (01) ==
LOC: NFLDREF 12-02 05:59
PROVIDERS: PCP Physician Assistant Medical; Referring Provider Physician Assistant Medical; Visit Provider Physician Assistant Medical
DX: M35.00 Sjogren syndrome, unspecified; M06.9 Rheumatoid arthritis, unspecified; Z13.220 Encounter for screening for lipoid disorders; Z13.29 Encounter for screening for other suspected endocrine disorder
CPT/HCPCS: 80053; 80061; 84443

== ENCOUNTER 2024-02-15 11:32 | Outpatient (CLI) | payer BC, SELFPAY ==
--- NOTE | 2024-02-15 11:30 | CRLHL7_ITS ---
For Patients: As a result of the Century Cures Act, medical imaging exams and procedure reports are released immediately into your electronic medical record. You may view this report before your referring provider. If you have questions, please contact your health care provider. BILATERAL SCREENING MAMMOGRAM WITH COMPUTER-AIDED DETECTION AND TOMOSYNTHESIS TECHNIQUE: CC and MLO views were obtained. These mammographic images have been obtained using full-field digital technique. These mammographic images were interpreted with the benefit of computer-aided detection. Breast Tomosynthesis was used in this interpretation. COMPARISON FILM: 02/11/23, 02/16/22, 12/31/20. FINDINGS: There are scattered areas of fibroglandular density. IMPRESSION: There is no radiographic evidence for malignancy. ASSESSMENT: BI-RADS Category 1: Negative RECOMMENDATION: Routine screening mammogram in 1 year. A lay language report of this examination will be provided to the patient. Gerard Walsh M.D. Diagnostic Radiologist [email or web address] SP/Dictated by: Gerard Walsh MD @ 02/15/2024 12:20:00 PM (Electronically Signed)
--- OUTSIDE RECORDS SUMMARY | 2024-02-15 11:35 | XMS_ITS | Continuity of Care Document ---
Author Organization [facility] Address [address] [place] [address] Phone Care Team Providers Care Tip Stitcher Name Role Phone Yunior Logan Unavailable Unavailable [...] Available - Active Procedures Procedure Date Office/Outpatient Visit,[facility] [place] [place] 2022 Advance Directives Directive Yes / No Effective Date File Name No Information Encounters Encounter Description Practice Location Reason(s) For Visit Diagnoses Date Provider Providers Copied on Encounter [facility], [address], [place], [id number], [place] tel:[phone] No Information Valeria Mojica. [facility], [address], [address], [place], [id number] , [place]. tel:[phone] Office/Outpat ient Visit,[facility] [place] [place] [facility], [address], [place], [id number], [place] tel:[phone] [facility] - Maria De Jesus Other spondylosis, lumbar regionLow back painOther intervertebral disc degeneration, lumbar region 3 Valeria Mojica. [facility], [address], [address], [place], [place], [id number] , [place]. [phone] Referring Provider: Dong Zheng[address], [address]. tel:[phone] Family History Family Member Type Diagnosis Age At Onset No Information Payers Payer name Insurance type Covered republican ID Authoriza tishanice(s) [facility] [id number] Out Of State [id number] Social History Type Description Quantity Date Captured [...]
--- OUTSIDE RECORDS SUMMARY | 2024-02-15 11:35 | XMS_ITS | Encounter Summary ---
[facility] Address [address] [place] [address] Care Team Providers Care Snowboard Designer Name Role Phone No Primary/Referring, Phy Primary Care Provider Unavailable Reason for Visit * Reason Comments Refill ENBREL SURECLICK 50 MG/ML injection [Pharmacy Med Name: ENBREL SURECLICK PF AUTOINJ 50MG/ML] Encounter Details Date Type Department Care Team (Late st Contact Info) Description 11/12/2023 Refill Rheumatology at [address] [place], [place] [id number] Caty Grace MD [address] [place] [phone] Refill (ENBREL SURECLICK 50 MG/ML injection [Pharmacy [...] 10/27/2023 WBC: 3.9 k/cmm on 10/27/2023 [facility] Embedded Refills, Reference: [id number], 11/12/2023 5:05:20 AM CDT, Pool: RHEUM PN REFILL [[id number]] ([id number]) * Pat Rush - 11/12/2023 5:05 AM [...] st Contact Info) Description 05/04/2024 11:15 AM POURER CRANE LADLE Appointment Rheumatology at [facility] [address] [address] Caty Grace MD [facility] [place] [address] documented as of this encounter Visit Diagnoses Diagnosis Seronegative rheumatoid arthritis (HRC) Rheumatoid arthritis documented in this encounter Care Teams Snowboard Designer Relationship Specialty Start Date End Date No Primary/Referring, Phy PCP - General 04/12/19 documented as of this encounter
--- OUTSIDE RECORDS SUMMARY | 2024-02-15 11:35 | XMS_ITS | Encounter Summary ---
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 Rheumatology at [facility] [address] [id number] Israel Grace MD [address] [place] [address] documented as of this encounter Procedures Procedure Name Priority Date/Time Associated Diagnosis Comments CBC AND DIFFERENTIAL PANEL Routine 01/19/2024 12:24 PM CDT Seronegative rheumatoid arthritis (HRC) CREATININE / GFR Routine 01/19/2024 12:2 4 PM CDT Seronegative rheumatoid arthritis (HRC) COMPLETE BLOOD COUNT-W/DIFF Routine 01/19/2024 12:24 PM CDT Seronegative rheumatoid arthritis (HRC) AST Routine 01/19/2024 12:24 PM CDT Seronegative rheumatoid arthritis (HRC) documented in this encounter Results * (ABNORMAL) Complete Blood Count-W/Diff (01/19/2024 12:24 PM CDT) [facility] WBC 3.9 3.5 - 10.5 x10(9)/L 01/19/2024 12:35 PM CDT [facility] RBC 3.91 3.90 - 5.03 x10(12)/L 01/19/2024 12:35 PM CDT [facility] Hemoglobin 11.9(L) 12.0 - 15.5 g/dL 01/19/2024 12:35 PM CDT [facility] HCT 37.6 34.9 - 44.5 % 01/19/2024 12:35 PM CDT [facility] MCV 96.2 80.0 - 100.0 fL 01/19/2024 12:35 PM CDT [facility] MCH 30.4 27.6 - 33.3 pg 01/19/2024 12:35 PM CDT [facility] MCHC 31.6 31.5 - 35.2 g/dL 01/19/2024 12:35 PM CDT [facility] RDW 13.7 11.9 - 15.5 % 01/19/2024 12:35 PM CDT [facility] Platelets 205 150 - 450 x10(9)/L 01/19/2024 12:35 PM CDT [facility] Neutrophil Absolute 2.3 1.7 - 7.0 10(9)/L 01/19/2024 12:35 PM CDT [facility] Lymphocyte Absolute 1.2 1.0 - 4.8 10(9)/L 01/19/2024 12:35 PM CDT [facility] Monocyte Absolute 0.3 0.2 - 0.9 10(9)/L 01/19/2024 12:35 PM CDT [facility] Eosinophil Absolute 0.1 0.0 - 0.5 10(9)/L 01/19/2024 12:35 PM CDT [facility] Basophil Absolute 0.0 0.0 - 0.3 10(9)/L 01/19/2024 12:35 PM CDT [facility] Immature Granulocyte % 0.3 0.0 - 0.5 % 01/19/2024 12:35 PM CDT [facility] Blood Venipuncture / Unknown 01/19/2024 12:24 PM CDT 01/19/2024 12:24 PM CDT Israel Grace MD LAB_1 Performing Organization Address City/[facility]/ZIP Co de Phone Number [facility] [address] [place] [address] * AST (01/19/2024 12:24 PM CDT) AST (SGOT) 21 10 - 40 U/L 01/19/2024 3:44 PM CDT [facility] Blood Venipuncture / Unknown 01/19/2024 12:24 PM CDT 01/19/2024 12:24 PM CDT Israel Grace MD LAB_1 Performing Organization Address [facility] Co de Phone Number [facility] [address] * Creatinine / GFR (01/19/2024 12:24 PM CDT) Creatinine 0.62 0.55 - 1.02 mg/dL 01/19/2024 3:44 PM CDT [facility] GFR, Estimated >60 >60 mL/min/1. 73m2 01/19/2024 3:44 PM CDT [facility] Blood Venipuncture / Unknown 01/19/2024 12:24 PM CDT 01/19/2024 12:24 PM CDT Israel Grace MD LAB_1 Performing Organization Address City/[facility]/ZIP Co de Phone Number [facility] [address] documented in this encounter Visit Diagnoses Diagnosis Seronegative rheumatoid arthritis (HRC) Rheumatoid arthritis documented in this encounter Care Teams Treatment Plant Mechanic Relationship Specialty Start Date End Date No Primary/Referring, y PCP - General 04/12/19 documented as of this encounter
--- OUTSIDE RECORDS SUMMARY | 2024-02-15 11:35 | XMS_ITS | Continuity of Care Document ---
Author Organization [facility] Address [address] [place] [address] Phone Care Team Providers Care Nickel Operator Name Role Phone Cecille Fuentes MD [...] day - Active Flonase 50 mcg/actuation Nasal Tad inhale 1 spray (50MCG) by intranasal route [...] [facility]ants , [address], [place], [address], [place] tel:[phone] [facility] No Information 0 Gina Oedn. [address], [address], [place], [address], [place]. tel:[phone] [facility] , [address], [place], [address], [place] tel:[phone] [facility] , No Information 9 Melisa Marroquin. [facility] [address], [place], [address], [place]. tel:[phone] Office/Outpa tient Visit, Est [facility] , [address], [place], [address], [place] tel:[phone] [facility] , Rheumatoid arthritis (chief complaint) Seronegative RAOA of 1st carpometacar pal jointSjogren syndromeOste openiaHigh risk medication monitoring 8 Melisa Marroquin. [facility] [address], [place], [address], [place]. tel:[phone] Referring Provider: Lopez Ash, [facility] [address], [place], [address]. tel:[phone] Office/Outpa tient Visit, Est [facility] , [address], [place], [address], [place] tel:[phone] [facility] , Rheumatoid arthritis (chief complaint) Seronegative RAOA of 1st carpometacar pal jointSjogren syndromeOste openiaHigh risk medication monitoring 8 Melisa Marroquin. [facility] [address], [place], [address], [place]. tel:[phone] Referring Provider: Lopez Ash, [facility] [address], [place], [address]. tel:[phone] Office/Outpa tient Visit, Est [facility] , [address], [place], [address], [place] tel:[phone] [facility] , Rheumatoid arthritis (chief complaint) Seronegative RAOA of 1st carpometacar pal jointSjogren syndromeOste openiaHigh risk medication monitoring 8 Melisa Marroquin. [facility] [address], [place], [address], [place]. tel:[phone] Referring Provider: Lopez Ash, [facility] [address], [place], [address]. tel:[phone] Office/Outpa tient Visit, Est [facility] , [address], [place], [address], [place] tel:[phone] [facility] , Rheumatoid arthritis (chief complaint) Seronegative RAOA of 1st carpometacar pal jointSjogren syndromeOste openiaHigh risk medication monitoring 7 Melisa Marroquin. [facility] [address], [place], [address], [place]. tel:[phone] Referring Provider: Lopez Ash, [facility] [address], [place], [address]. tel:[phone] Office/Outpa tient Visit, Est [facility] , [address], [place], [address], [place] tel:[phone] [facility] , Rheumatoid arthritis (chief complaint) Seronegative RAOA of 1st carpometacar pal jointSjogren syndromeOste openiaHigh risk medication monitoring [facility] Lopez. [facility] [address], [place], [address], [place]. tel:[phone] Referring Provider: Lopez Ash, [facility] [address], [place], [address]. tel:[phone] [facility] , [address], [place], [address], [place] tel:[phone] [facility] , Osteopenia [facility] Lopez. [facility] [address], [place], [address], [place]. tel:[phone] Referring Provider: Lopez Ash, [facility] [address], [place], [address]. tel:[phone] Office/Outpa tient Visit, Est [facility] , [address], [place], [address], [place] tel:[phone] [facility] , Rheumatoid arthritis (chief complaint) Seronegative RAOA of 1st carpometacar pal jointSjogren syndromeOste openiaHigh risk medication monitoring [facility] Lopez. [facility] [address], [place], [address], [place]. tel:[phone] Referring Provider: Lopez Ash, [facility] [address], [place], [address]. tel:[phone] Office/Outpa tient Visit, Est [facility] , [address], [place], [address], [place] tel:[phone] [facility] , Rheumatoid arthritis (chief complaint) Sjogren syndromeOA of 1st carpometacar pal jointOsteope niaHigh risk medication monitoringSe ronegative RA 6 Melisa Marroquin. [facility] [address], [place], [address], [place]. tel:[phone] Referring Provider: Lopez Ash, [facility] [address], [place], [address]. tel:[phone] Office/Outpa tient Visit, Est [facility] , [address], [place], [address], [place] tel:[phone] [facility] , Rheumatoid arthritis (chief complaint) Seronegative RASjogren syndromeOA of 1st carpometacar pal jointOsteope niaTrochante sterling bursitis of right hipHigh risk medication monitoring 6 Melisa Devlinad. [facility] [address], [place], [address], [place]. tel:[phone] Referring Provider: Lopez Ash, [facility] [address], [place], [address]. tel:[phone] Office/Outpa tient Visit, Est [facility] , [address], [place], [address], [place] tel:[phone] [facility] , Rheumatoid arthritis (chief complaint) Seronegative RASjogren syndromeOA of 1st carpometacar pal jointOsteope niaTrochante sterling bursitis of right hipHigh risk medication monitoring 6 Melisa Marroquin. [facility] [address], [place], [address], [place]. tel:[phone] Referring Provider: Lopez Ash, [facility] [address], [place], [address]. tel:[phone] Office/Outpa tient Visit, Est [facility] , [address], [place], [address], [place] tel:[phone] [facility] , Rheumatoid arthritis (chief complaint) Sj g michael's syndromeRheu matoid ArthritisOst eoarthrosis, localized, primary, involving handOsteopen iaTherapeuti c Drug Monitoring 5 Melisaevelyn Marroquin. [facility] [address], [place], [address], [place]. tel:[phone] Referring Provider: Lopez Ash, [facility] [address], [place], [address]. tel:[phone] Office/Outpa tient Visit, Est [facility] , [address], [place], [address], [place] tel:[phone] [facility] , Rheumatoid arthritis (chief complaint) Sj g michael's syndromeRheu matoid ArthritisOst eoarthrosis, localized, primary, involving handOsteopen iaTherapeuti c Drug Monitoring 5 Melisa Lopez. [facility] [address], [place], [address], [place]. tel:[phone] Referring Provider: Lopez Ash, [facility] [address], [place], [address]. tel:[phone] Office/Outpa tient Visit, Est [facility] , [address], [place], [address], [place] tel:[phone] [facility] , Rheumatoid arthritis (chief complaint) Rheumatoid ArthritisOst eoarthrosis, localized, primary, involving handSj g michael's syndromeTher apeutic Drug MonitoringOs teopenia 5 Melisa Marroquin. [facility] [address], [place], [address], [place]. tel:[phone] Referring Provider: Lopez Ash, [facility] [address], [place], [address]. tel:[phone] [facility] , [address], [place], [address], [place] tel:[phone] [facility] , No Information 5 Melisa Marroquin. [facility] [address], [place], [address], [place]. tel:[phone] Referring Provider: Lopez Ash, [facility] [address], [place], [address]. tel:[phone] Office/Outpa tient Visit, Est [facility] , [address], [place], [address], [place] tel:[phone] [facility] , Rheumatoid Arthritis (chief complaint) Rheumatoid ArthritisDis order of bone and cartilage, unspecifiedT herapeutic Drug MonitoringSi cca syndromeOste oarthrosis, localized, primary, involving hand Dec- 4 Melisa Marroquin. [facility] [address], [place], [address], [place]. tel:[phone] Referring Provider: Lopez Ash, [facility] [address], [place], [address]. tel:[phone] Office/Outpa tient Visit, Est [facility] , [address], [place], [address], [place] tel:[phone] [facility] , Rheumatoid Arthritis (chief complaint) Rheumatoid ArthritisThe rapeutic Drug MonitoringDi sorder of bone and cartilage, unspecifiedA nemia, Iron DeficiencySi cca syndrome Chidi- 4 Melisa Marroquin. [facility] [address], [place], [address], [place]. tel:[phone] Referring Provider: Lopez Ash, [facility] [address], [place], [address]. tel:[phone] Office/Outpa tient Visit, Est [facility] , [address], [place], [address], [place] tel:[phone] [facility] , Rheumatoid Arthritis (chief complaint) Rheumatoid ArthritisThe rapeutic Drug MonitoringSi cca syndromeDiso rder of bone and cartilage, unspecifiedA nemia, Iron Deficiency Jun-0 4 Melisaevelyn Marroquin. [facility] [address], [place], [address], [place]. tel:[phone] Referring Provider: Lopez Ash, [facility] [address], [place], [address]. tel:[phone] Office/Outpa tient Visit, Est [facility] , [address], [place], [address], [place] tel:[phone] [facility] , Rheumatoid Arthritis (chief complaint) Rheumatoid ArthritisDis order of bone and cartilage, unspecifiedS icca syndromeTher apeutic Drug Monitoring Dec-0 3 Melisa Mraroquin. [facility] [address], [place], [address], [place]. tel:[phone] Referring Provider: Lopez Ash, [facility] [address], [place], [address]. tel:[phone] Office/Outpa tient Visit, Est [facility] , [address], [place], [address], [place] tel:[phone] [facility] , Rheumatoid Arthritis (chief complaint) Rheumatoid ArthritisDis order of bone and cartilage, unspecifiedS icca syndromeTher apeutic Drug Monitoring [facility] Lopez. [facility] [address], [place], [address], [place]. tel:[phone] Referring Provider: Lopez Ash, [facility] [address], [place], [address]. tel:[phone] Office/Outpa tient Visit, Est [facility] , [address], [place], [address], [place] tel:[phone] [facility] , Rheumatoid Arthritis (chief complaint) Rheumatoid ArthritisSic ca syndromeDiso rder of bone and cartilage, unspecifiedT herapeutic Drug MonitoringOt her bursitis disordersOst eoarthrosis, localized, primary, involving hand 0 3 Melisaevelyn Marroquin. [facility] [address], [place], [address], [place]. tel:[phone] Referring Provider: Lopez Ash, [facility] [address], [place], [address]. tel:[phone] Office/Outpa tient Visit, Est [facility] , [address], [place], [address], [place] tel:[phone] [facility] , Rheumatoid Arthritis (chief complaint) Rheumatoid ArthritisDis order of bone and cartilage, unspecifiedT herapeutic Drug MonitoringOs teoarthrosis , localized, primary, involving hand 2 [facility] Lopez. [facility] [address], [place], [address], [place]. tel:[phone] Referring Provider: Lopez Ash, [facility] [address], [place], [address]. tel:[phone] Office/Outpa tient Visit, Est [facility] , [address], [place], [address], [place] tel:[phone] [facility] , Rheumatoid Arthritis (chief complaint) Rheumatoid ArthritisSic ca syndromeDiso rder of bone and cartilage, unspecifiedT herapeutic Drug Monitoring 2 [facility] Lopez. [facility] [address], [place], [address], [place]. tel:[phone] Referring Provider: Lopez Ash, [facility] [address], [place], [address]. tel:[phone] [facility] , [address], [place], [address], [place] tel:[phone] [facility] , No Information 2 [facility] Lopez. [facility] [address], [place], [address], [place]. tel:[phone] Referring Provider: Lopez Ash, [facility] [address], [place], [address]. tel:[phone] Family History Family Member Type Diagnosis Age At Onset Problem (finding) No family hist ory of Rheumatoid arthritis Payers Payer name Insurance type Covered democrat ID Hugo ambrosio(s) [facility] [id number] Social History Type Description Quantity Date Captured Comments Alcohol Use Details Unknown Caffeine Use Details Unknown Tobacco Use Status No Information Smoking Status No Information Sex Female Chief Complaint And Reason For Visit No Information Reason For Referral Reason For Referral No Information Plan Of Treatment Date Type Action Status Referral Ordered: [facility] (related to OA of 1st carpometacarpal joint) ordered Referral Referred To: [facility] [address] [place], [place] [id number] Ordered: Referrals: [facility]. Consult ordered History Of Present [...]
--- OUTSIDE RECORDS SUMMARY | 2024-02-15 11:35 | XMS_ITS | Clinical Summary ---
Author Organization [facility] Address [address] [place] [address] Care Team Providers Care Small Battery Plate Assembler Name Role Phone No Primary/Referring, Phy Primary Care Provider Unavailable Source Comments You are receiving this document as you are listed as the primary care provider,follow-up provider, or the patient has been referred to you for consultation.This is in compliance with the Medicare and[facility] EHR Incentive Program,which states Providers who transition their patient to another setting of careor provider of care or refers their patient to another provider of care shouldprovide summary care record for each transition of care or referral. Nexstim Allergies Active Allergy Reactions Criticality Noted Date [...] different from the original. Lori nurse leigh [facility] Nurse case management program Phone [phone] ask to speak to first available nurse. Problem Noted Date Diagnosed Date Disorder of rotator cuff, left 09/06/2018 Seronegative rheumatoid arthritis 05/10/2018 Sicca syndrome 05/10/2018 Asthma, mild intermittent 05/10/2018 Irritable bowel syndrome wit h both constipation and diarrhea 05/10/2018 Trochanteric bursitis, right hip 05/10/2018 Primary osteoarthritis of both first carpometaca rpal joints 05/10/2018 [facility] current use of therapeutic drug 2018 Encounters Date Type Department Care Team Description 01/19/2024 12:20 PM CDT Lab Visit Laboratory at [address] [phone] Seronegative rheumatoid arthritis (HRC) from Last 3 Months Immunizations Name Administration Dates Next Due Flu Vac (3+ yrs) 12/15/2008 Flu Vac Preserv Free (3+yrs) 01/16/2014, 12/20/2012,12/31/2011,2010 Flublok (RIV4) 01/07/2019 Influenza (Flucelvax), Prese rv Free QIV 12/22/2022,12/19/2021 Influenza IIV4 (Quadrivalent ) 0.5mL ([id number]) 12/23/2020,01/13/2020,01/04/2018,2016,01/03/2016,01/02/2015 Influenza, Unspecified Formulation 12/23/2020 Moderna Bivalent 12+ 12/26/2021 Moderna Monovalent 12+ 06/25/2021,2020,07/13/2020,2020 PCV13 (Prevnar) 01/13/2017 PCV20 ([id number]) 04/10/2023 PPSV23 (Pneumovax) 11/29/2009 Tdap 05/21/2011 Zoster [...] 87 10/07/2021 12:11 PM CDT Temperature 36.6 C (97.8 F) 10/07/2021 12:11 PM CDT Respiratory Rate - - Oxygen Saturation - - Inhaled Oxygen Concentration - - Weight 88.9 kg (196 lb) 04/04/2020 11:40 AM BUTCHER Height - - Body Mass Index - - Plan of Treatment Upcoming Encounters Date Type Department Care Team (Late st Contact Info) Description 05/04/2024 11:15 AM BUTCHER Appointment Rheumatology at [facility] [id number] [place] [id number] Israel Grace MD [address] [place], [place] [phone] Health Maintenance Due Date Last Done Comments [...] (Preventive Services) Completed 05/10/2018 Zoster/Shingles Completed 02/21/2019, 04/2018, 11/18/2018 Pneumococcal Completed 04/10/2023, 12/28, 11/29/2009 HepA Aged Out No longer eligi ble based on patient's age to complete this topic Hib Aged Out No longer eligi ble based on patient's age to complete this topic IPV (Polio) Aged Out No longer eligi ble based on patient's age to complete this topic Infant RSV Aged Out No longer eligi ble based on patient's age to complete this topic MCV4 Aged Out No longer eligi ble based on patient's age to complete this topic Procedures Procedure Name Priority Date/Time Associated Diagnosis Comments COMPLETE BLOOD COUNT-W/DIFF Routine 01/19/2024 12:24 PM CDT Seronegative rheumatoid arthritis (HRC) CBC AND DIFFERENTIAL PANEL Routine 01/19/2024 12:24 PM CDT Seronegative rheumatoid arthritis (HRC) AST Routine 01/19/2024 12:24 PM CDT Seronegative rheumatoid arthritis (HRC) CREATININE / GFR Routine 01/19/2024 12:2 4 PM CDT Seronegative rheumatoid arthritis (HRC) HEPATITIS C ANTIBODY, WITH REFLEX Routine 05/10/2018 10:15 AM BUTCHER Seronegative rheumatoid arthritis (HRC) from Last 3 Months or Most Recently Relevant to Health Maintenance Results * Creatinine / GFR (01/19/2024 12:24 PM CDT) Pathologist [facility] Creatinine 0.62 0.55 - 1.02 mg/dL 01/19/2024 3:44 PM CDT [facility] GFR, Estimated >60 >60 mL/min/1. 73m2 01/19/2024 3:44 PM CDT [facility] Blood Venipuncture / Unknown 01/19/2024 12:24 PM CDT 01/19/2024 12:24 PM CDT Israel Grace MD LAB_1 Performing Organization Address City/State/[facility] Co de Phone Number [facility] [address] * (ABNORMAL) Complete Blood Count-W/Diff (01/19/2024 12:24 PM CDT) WBC 3.9 3.5 - 10.5 x10(9)/L 01/19/2024 12:35 PM CDT [facility] RBC 3.91 3.90 - 5.03 x10(12)/L 01/19/2024 12:35 PM CDT [facility] Hemoglobin 11.9(L) 12.0 - 15.5 g/dL 01/19/2024 12:35 PM CDT [facility] HCT 37.6 34.9 - 44.5 % 01/19/2024 12:35 PM CDT [facility] MCV 96.2 80.0 - 100.0 fL 01/19/2024 12:35 PM CDT [facility] MCH 30.4 27.6 - 33.3 pg 01/19/2024 12:35 PM CDT [facility] MCHC 31.6 31.5 - 35.2 g/dL 01/19/2024 12:35 PM CDT [facility] RDW 13.7 11.9 - 15.5 % 01/19/2024 12:35 PM CDT [facility] Platelets 205 150 - 450 x10(9)/L 01/19/2024 12:35 PM CDT [facility] Neutrophil Absolute 2.3 1.7 - 7.0 10(9)/L 01/19/2024 12:35 PM CDT [facility] Lymphocyte Absolute 1.2 1.0 - 4.8 10(9)/L 01/19/2024 12:35 PM CDT [facility] Monocyte Absolute 0.3 0.2 - 0.9 10(9)/L 01/19/2024 12:35 PM CDT [facility] Eosinophil Absolute 0.1 0.0 - 0.5 10(9)/L 01/19/2024 12:35 PM CDT [facility] Basophil Absolute 0.0 0.0 - 0.3 10(9)/L 01/19/2024 12:35 PM CDT [facility] Immature Granulocyte % 0.3 0.0 - 0.5 % 01/19/2024 12:35 PM CDT [facility] Blood Venipuncture / Unknown 01/19/2024 12:24 PM CDT 01/19/2024 12:24 PM CDT Israel Grace MD LAB_1 [facility] [address] [place] [address], [facility] * AST (01/19/2024 12:24 PM CDT) AST (SGOT) 21 10 - 40 U/L 01/19/2024 3:44 PM CDT [facility] Blood Venipuncture / Unknown 01/19/2024 12:24 PM CDT 01/19/2024 12:24 PM CDT Israel Grcae MD LAB_1 [facility] [address] [place] [address] * HCAB - Hepatitis C Virus Indira with Reflex In-House (05/10/2018 10:15 AM BUTCHER) Hepatitis C Antibody Nonreactive Nonreactive PN SOFT 05/10/2018 10:1 5 AM BUTCHER 05/10/2018 12:34 PM BUTCHER Narrative PN SOFT - 05/10/2018 2:42 PM BUTCHER Performed at [place] [id number] CLIA number [id number] Israel Grace MD LAB_1 Performing Organization Address [facility] Co de Phone Number PN SOFT [address] [place] [phone] from Last 3 Months or Most Recently Relevant to Health Maintenance Care Teams Small Battery Plate Assembler Relationship Specialty Start Date End Date No Primary/Referring, Phy PCP - General 04/12/19
== END 2024-02-15 11:33 | disposition home or self-care (01) ==
LOC: MAMMO 11:33
PROVIDERS: PCP Physician Assistant Medical; Visit Provider Physician Assistant Medical
DX: Z12.31 Encounter for screening mammogram for malignant neoplasm of breast (principal)
CPT/HCPCS: 77063; 77067

== ENCOUNTER 2024-03-16 11:09 | Outpatient (CLI) | payer BC, SELFPAY | END 2024-03-16 11:10 | disposition home or self-care (01) | LOC: NFLDREF 11:12 | PROVIDERS: PCP Physician Assistant Medical; Visit Provider Obstetrics & Gynecology | DX: N92.1 Excessive and frequent menstruation with irregular cycle (principal) | CPT/HCPCS: 84439; 84443 ==

== ENCOUNTER 2024-03-25 10:51 | Outpatient (CLI) | payer BC, SELFPAY ==
--- NOTE | 2024-03-25 11:00 | CRLHL7_ITS ---
For Patients: As a result of the Century Cures Act, medical imaging exams and procedure reports are released immediately into your electronic medical record. You may view this report before your referring provider. If you have questions, please contact your health care provider. INDICATION: irregular bleeding COMPARISON: 04/17/2017 TECHNIQUE: 2D figueroa scale and color Doppler images were acquired of the pelvis using a transabdominal and transvaginal approach. FINDINGS: Sonographic images demonstrate a normal size and smooth outer contour of the uterus. Uterus measures 7.0 cm in length by 4.3 cm in AP diameter by 5.1 cm in transverse dimension. The myometrium has a normal uniform echotexture. The endometrial lining measures 0.65 mm in composite thickness. Heterogeneously hyperechoic nodular structure within the endometrium measures 1.2 x 0.6 x 1.1 cm. Patient has history of polypectomy in the past. The right ovary measures 1.4 x 1.9 x 1.1 cm in size and the left ovary is not visualized. The right ovary demonstrates normal arterial and venous blood flow on color Doppler analysis. There are no suspicious fluid collections within the cul-de-sac. IMPRESSION: Possible endometrial polyp measuring 1.2 cm. Dictated by Gerard Walsh MD @ 03/25/2024 12:19:37 PM (Electronically Signed)
== END 2024-03-25 10:52 | disposition home or self-care (01) ==
LOC: US 10:52
PROVIDERS: PCP Physician Assistant Medical; Visit Provider Obstetrics & Gynecology
DX: N92.6 Irregular menstruation, unspecified (principal)
CPT/HCPCS: 76830; 76856

== ENCOUNTER 2024-04-22 08:51 | Outpatient (CLI) | payer BC, SELFPAY | END 2024-04-22 08:52 | disposition home or self-care (01) | LOC: RAD 08:52 | PROVIDERS: PCP Physician Assistant Medical; Visit Provider Physician Assistant Medical | DX: R06.02 Shortness of breath (principal) | CPT/HCPCS: 93306 ==

== ENCOUNTER 2024-05-11 06:55 | Day surgery (SDC) | payer BC, SELFPAY ==
--- OUTSIDE RECORDS SUMMARY | 2024-05-11 06:58 | XMS_ITS | Encounter Summary ---
Author Organization [facility] Address [address] [address] Care Team Providers Care Wood Finisher Name Role Phone No Primary/Referring, Phy Primary Care Provider Unavailable Encounter Details Date Type Department Care Team (Latest Contact Info) Description 04/18/2024 12:00 PM DOOR SERVICEMAN Lab Visit Laboratory at [address] [phone] Seronegative rheumatoid arthritis (HRC) Social History Tobacco Use Types Packs/Day Years Used Date Smoking Tobacco: Never Smokeless Tobacco: Never Alcohol Use Standard Drinks/Week Comments Yes 0 (1 standard drink = 0.6 oz pur e alcohol) Comments Unknown Sex and Gender Information Value Date Recorded Sex Assigned at Not on file Legal Sex Female 11:52 AM DOOR SERVICEMAN Gender Identity Not on file Sexual Orientation Not on file documented as of this encounter Plan of Treatment Upcoming Encounters Date Type Department Care Team (Late st Contact Info) Description 11/02/2024 11:15 AM CDT Appointment Rheumatology at [facility] [address] [phone] Israel Grace MD [facility] [place] [address] documented as of this encounter Procedures Procedure Name Priority Date/Time Associated Diagnosis Comments CBC AND DIFFERENTIAL PANEL Routine 04/18/2024 11:57 AM DOOR SERVICEMAN Seronegative rheumatoid arthritis (HRC) CREATININE / GFR Routine 04/18/2024 11:5 7 AM DOOR SERVICEMAN Seronegative rheumatoid arthritis (HRC) COMPLETE BLOOD COUNT-W/DIFF Routine 04/18/2024 11:57 AM DOOR SERVICEMAN Seronegative rheumatoid arthritis (HRC) AST Routine 04/18/2024 11:57 AM DOOR SERVICEMAN Seronegative rheumatoid arthritis (HRC) documented in this encounter Results * (ABNORMAL) Complete Blood Count-W/Diff (04/18/2024 11:57 AM DOOR SERVICEMAN) Pathologist [facility] WBC 4.9 3.5 - 10.5 x10(9)/L 04/18/2024 12:00 PM DOOR SERVICEMAN [facility] RBC 3.81(L) 3.90 - 5.03 x10(12)/L 04/18/2024 12:00 PM DOOR SERVICEMAN [facility] Hemoglobin 11.6(L) 12.0 - 15.5 g/dL 04/18/2024 12:00 PM DOOR SERVICEMAN [facility] HCT 36.0 34.9 - 44.5 % 04/18/2024 12:00 PM DOOR SERVICEMAN [facility] MCV 94.5 80.0 - 100.0 fL 04/18/2024 12:00 PM DOOR SERVICEMAN [facility] MCH 30.4 27.6 - 33.3 pg 04/18/2024 12:00 PM DOOR SERVICEMAN [facility] MCHC 32.2 31.5 - 35.2 g/dL 04/18/2024 12:00 PM DOOR SERVICEMAN [facility] RDW 14.1 11.9 - 15.5 % 04/18/2024 12:00 PM DOOR SERVICEMAN [facility] Platelets 224 150 - 450 x10(9)/L 04/18/2024 12:00 PM DOOR SERVICEMAN [facility] Neutrophil Absolute 3.1 1.7 - 7.0 10(9)/L 04/18/2024 12:00 PM DOOR SERVICEMAN [facility] Lymphocyte Absolute 1.2 1.0 - 4.8 10(9)/L 04/18/2024 12:00 PM DOOR SERVICEMAN [facility] Monocyte Absolute 0.5 0.2 - 0.9 10(9)/L 04/18/2024 12:00 PM DOOR SERVICEMAN [facility] Eosinophil Absolute 0.2 0.0 - 0.5 10(9)/L 04/18/2024 12:00 PM DOOR SERVICEMAN [facility] Basophil Absolute 0.0 0.0 - 0.3 10(9)/L 04/18/2024 12:00 PM DOOR SERVICEMAN [facility] Immature Granulocyte % 0.2 0.0 - 0.5 % 04/18/2024 12:00 PM DOOR SERVICEMAN [facility] Blood Venipuncture / Unknown 04/18/2024 11:57 AM DOOR SERVICEMAN 04/18/2024 11:57 AM DOOR SERVICEMAN Israel Grace MD LAB_1 Final Result Performing Organization Address City/[facility] Co de Phone Number [facility] [address] [place] [address] * AST (04/18/2024 11:57 AM DOOR SERVICEMAN) AST (SGOT) 25 10 - 40 U/L 04/18/2024 3:56 PM DOOR SERVICEMAN [facility] Blood Venipuncture / Unknown 04/18/2024 11:57 AM DOOR SERVICEMAN 04/18/2024 11:57 AM DOOR SERVICEMAN us Israel Grace MD LAB_1 Final Result Performing Organization Address [facility] de Phone Number [facility] [address] * Creatinine / GFR (04/18/2024 11:57 AM DOOR SERVICEMAN) Creatinine 0.65 0.55 - 1.02 mg/dL 04/18/2024 3:56 PM DOOR SERVICEMAN [facility] GFR, Estimated >60 >60 mL/min/1. 73m2 04/18/2024 3:56 PM DOOR SERVICEMAN [facility] Blood Venipuncture / Unknown 04/18/2024 11:57 AM DOOR SERVICEMAN 04/18/2024 11:57 AM DOOR SERVICEMAN us Israel Grace MD LAB_1 Final Result Performing Organization Address City/[facility] Co de Phone Number [facility] [employer] [facility] [address] [place], [place] [address] documented in this encounter Visit Diagnoses Diagnosis Seronegative rheumatoid arthritis (HRC) Rheumatoid arthritis documented in this encounter Care Teams Wood Finisher Relationship Specialty Start Date End Date No Primary/Referring, Phy PCP - General 04/12/19 documented as of this encounter
--- OUTSIDE RECORDS SUMMARY | 2024-05-11 06:58 | XMS_ITS | Continuity of Care Document ---
Author Organization [facility] Address [address] [place] [address] Phone Care Team Providers Care Territory Representative Name Role Phone Cecille Fuentes MD Unavailable [...] day - Active Flonase 50 mcg/actuation Nasal Jemison inhale 1 spray (50MCG) by intranasal route [...] [facility] , [address], [place], [address], [place] tel:[phone] [facility] No Information 0 Gina Oden. [address], [address], [place], [address], [place]. tel:[phone] [facility] , [address], [place], [address], [place] tel:[phone] [facility] , No Information 9 Melisa Marroquin. [facility] [address], [place], [address], [place]. tel:[phone] Office/Outpa tient Visit, Est [facility] , [address], [place], [address], [place] tel:[phone] [facility] , Rheumatoid arthritis (chief complaint) Seronegative RAOA of 1st carpometacar pal jointSjogren syndromeOste openiaHigh risk medication monitoring 8 Melisa Marroquin. [facility] [address], [place], [address], [place]. tel:[phone] Referring Provider: Lopez Ash, [facility] [address], [place], [address]. tel:[phone] Office/Outpa tient Visit, Est [facility] , [address], [place], [address], [place] tel:[phone] [facility] , Rheumatoid arthritis (chief complaint) Seronegative RAOA of 1st carpometacar pal jointSjogren syndromeOste openiaHigh risk medication monitoring 8 Melisa Marroquin. [facility] [address], [place], [address], [place]. tel:[phone] Referring Provider: Lopez Ash, [facility] [address], [place], [address]. tel:[phone] Office/Outpa tient Visit, Est [facility] , [address], [place], [address], [place] tel:[phone] [facility] , Rheumatoid arthritis (chief complaint) Seronegative RAOA of 1st carpometacar pal jointSjogren syndromeOste openiaHigh risk medication monitoring 8 Melisa Marroquin. [facility] [address], [place], [address], [place]. tel:[phone] Referring Provider: Lopez Ash, [facility] [address], [place], [address]. tel:[phone] Office/Outpa tient Visit, Est [facility] , [address], [place], [address], [place] tel:[phone] [facility] , Rheumatoid arthritis (chief complaint) Seronegative RAOA of 1st carpometacar pal jointSjogren syndromeOste openiaHigh risk medication monitoring 7 Melisa Marroquin. [facility] [address], [place], [address], [place]. tel:[phone] Referring Provider: Lopez Ash, [facility] [address], [place], [address]. tel:[phone] Office/Outpa tient Visit, Est [facility] , [address], [place], [address], [place] tel:[phone] [facility] , Rheumatoid arthritis (chief complaint) Seronegative RAOA of 1st carpometacar pal jointSjogren syndromeOste openiaHigh risk medication monitoring [facility] Lopez. [facility] [address], [place], [address], [place]. tel:[phone] Referring Provider: Lopez Ash, [facility] [address], [place], [address]. tel:[phone] [facility] , [address], [place], [address], [place] tel:[phone] [facility] , Osteopenia [facility] Lopez. [facility] [address], [place], [address], [place]. tel:[phone] Referring Provider: Lopez Ash, [facility] [address], [place], [address]. tel:[phone] Office/Outpa tient Visit, Est [facility] , [address], [place], [address], [place] tel:[phone] [facility] , Rheumatoid arthritis (chief complaint) Seronegative RAOA of 1st carpometacar pal jointSjogren syndromeOste openiaHigh risk medication monitoring [facility] Lopez. [facility] [address], [place], [address], [place]. tel:[phone] Referring Provider: Lopez Ash, [facility] [address], [place], [address]. tel:[phone] Office/Outpa tient Visit, Est [facility] , [address], [place], [address], [place] tel:[phone] [facility] , Rheumatoid arthritis (chief complaint) Sjogren syndromeOA of 1st carpometacar pal jointOsteope niaHigh risk medication monitoringSe ronegative RA 6 Melisa Marroquin. [facility] [address], [place], [address], [place]. tel:[phone] Referring Provider: Lopez Ash, [facility] [address], [place], [address]. tel:[phone] Office/Outpa tient Visit, Est [facility] , [address], [place], [address], [place] tel:[phone] [facility] , Rheumatoid arthritis (chief complaint) Seronegative RASjogren syndromeOA of 1st carpometacar pal jointOsteope niaTrochante sterling bursitis of right hipHigh risk medication monitoring 6 Melisa Devlinad. [facility] [address], [place], [address], [place]. tel:[phone] Referring Provider: Lopez Ash, [facility] [address], [place], [address]. tel:[phone] Office/Outpa tient Visit, Est [facility] , [address], [place], [address], [place] tel:[phone] [facility] , Rheumatoid arthritis (chief complaint) Seronegative RASjogren syndromeOA of 1st carpometacar pal jointOsteope niaTrochante sterling bursitis of right hipHigh risk medication monitoring 6 Melisa Marroquin. [facility] [address], [place], [address], [place]. tel:[phone] Referring Provider: Lopez Ash, [facility] [address], [place], [address]. tel:[phone] Office/Outpa tient Visit, Est [facility] , [address], [place], [address], [place] tel:[phone] [facility] , Rheumatoid arthritis (chief complaint) Sj g michael's syndromeRheu matoid ArthritisOst eoarthrosis, localized, primary, involving handOsteopen iaTherapeuti c Drug Monitoring 5 Melisaevelyn Marroquin. [facility] [address], [place], [address], [place]. tel:[phone] Referring Provider: Lopez Ash, [facility] [address], [place], [address]. tel:[phone] Office/Outpa tient Visit, Est [facility] , [address], [place], [address], [place] tel:[phone] [facility] , Rheumatoid arthritis (chief complaint) Sj g michael's syndromeRheu matoid ArthritisOst eoarthrosis, localized, primary, involving handOsteopen iaTherapeuti c Drug Monitoring 5 Melisa Lopez. [facility] [address], [place], [address], [place]. tel:[phone] Referring Provider: Lopez Ash, [facility] [address], [place], [address]. tel:[phone] Office/Outpa tient Visit, Est [facility] , [address], [place], [address], [place] tel:[phone] [facility] , Rheumatoid arthritis (chief complaint) Rheumatoid ArthritisOst eoarthrosis, localized, primary, involving handSj g michael's syndromeTher apeutic Drug MonitoringOs teopenia 5 Melisa Marroquin. [facility] [address], [place], [address], [place]. tel:[phone] Referring Provider: Lopez Ash, [facility] [address], [place], [address]. tel:[phone] [facility] , [address], [place], [address], [place] tel:[phone] [facility] , No Information 5 Melisa Marroquin. [facility] [address], [place], [address], [place]. tel:[phone] Referring Provider: Lopez Ash, [facility] [address], [place], [address]. tel:[phone] Office/Outpa tient Visit, Est [facility] , [address], [place], [address], [place] tel:[phone] [facility] , Rheumatoid Arthritis (chief complaint) Rheumatoid ArthritisDis order of bone and cartilage, unspecifiedT herapeutic Drug MonitoringSi cca syndromeOste oarthrosis, localized, primary, involving hand Dec- 4 Melisa Marroquin. [facility] [address], [place], [address], [place]. tel:[phone] Referring Provider: Lopez Ash, [facility] [address], [place], [address]. tel:[phone] Office/Outpa tient Visit, Est [facility] , [address], [place], [address], [place] tel:[phone] [facility] , Rheumatoid Arthritis (chief complaint) Rheumatoid ArthritisThe rapeutic Drug MonitoringDi sorder of bone and cartilage, unspecifiedA nemia, Iron DeficiencySi cca syndrome Chidi- 4 Melisa Marroquin. [facility] [address], [place], [address], [place]. tel:[phone] Referring Provider: Lopez Ash, [facility] [address], [place], [address]. tel:[phone] Office/Outpa tient Visit, Est [facility] , [address], [place], [address], [place] tel:[phone] [facility] , Rheumatoid Arthritis (chief complaint) Rheumatoid ArthritisThe rapeutic Drug MonitoringSi cca syndromeDiso rder of bone and cartilage, unspecifiedA nemia, Iron Deficiency Jun-0 4 Melisaevelyn Marroquin. [facility] [address], [place], [address], [place]. tel:[phone] Referring Provider: Lopez Ash, [facility] [address], [place], [address]. tel:[phone] Office/Outpa tient Visit, Est [facility] , [address], [place], [address], [place] tel:[phone] [facility] , Rheumatoid Arthritis (chief complaint) Rheumatoid ArthritisDis order of bone and cartilage, unspecifiedS icca syndromeTher apeutic Drug Monitoring Dec-0 3 Melisa Marroquin. [facility] [address], [place], [address], [place]. tel:[phone] Referring Provider: Lopez Ash, [facility] [address], [place], [address]. tel:[phone] Office/Outpa tient Visit, Est [facility] , [address], [place], [address], [place] tel:[phone] [facility] , Rheumatoid Arthritis (chief complaint) Rheumatoid ArthritisDis order of bone and cartilage, unspecifiedS icca syndromeTher apeutic Drug Monitoring [facility] Lopez. [facility] [address], [place], [address], [place]. tel:[phone] Referring Provider: Lopez Ash, [facility] [address], [place], [address]. tel:[phone] Office/Outpa tient Visit, Est [facility] , [address], [place], [address], [place] tel:[phone] [facility] , Rheumatoid Arthritis (chief complaint) Rheumatoid ArthritisSic ca syndromeDiso rder of bone and cartilage, unspecifiedT herapeutic Drug MonitoringOt her bursitis disordersOst eoarthrosis, localized, primary, involving hand 0 3 Melisaevelyn Marroquin. [facility] [address], [place], [address], [place]. tel:[phone] Referring Provider: Lopez Ash, [facility] [address], [place], [address]. tel:[phone] Office/Outpa tient Visit, Est [facility] , [address], [place], [address], [place] tel:[phone] [facility] , Rheumatoid Arthritis (chief complaint) Rheumatoid ArthritisDis order of bone and cartilage, unspecifiedT herapeutic Drug MonitoringOs teoarthrosis , localized, primary, involving hand [address] [facility] Lopez. [facility] [address], [place], [address], [place]. tel:[phone] Referring Provider: Lopez Ash, [facility] [address], [place], [address]. tel:[phone] Office/Outpa tient Visit, Est [facility] , [address], [place], [address], [place] tel:[phone] [facility] , Rheumatoid Arthritis (chief complaint) Rheumatoid ArthritisSic ca syndromeDiso rder of bone and cartilage, unspecifiedT herapeutic Drug Monitoring 2 [facility] Lopez. [facility] [address], [place], [address], [place]. tel:[phone] Referring Provider: Lopez sAh, [facility] [address], [place], [address]. tel:[phone] [facility] , [address], [place], [address], [place] tel:[phone] [facility] , No Information [address] [facility] Lopez. [facility] [address], [place], [address], [place]. tel:[phone] Referring Provider: Lopez Ash, [facility] [address], [place], [address]. tel:[phone] Family History Family Member Type Diagnosis Age At Onset Problem (finding) No family hist ory of Rheumatoid arthritis Payers Payer name Insurance type Covered republican ID Hugo ambrosio(s) [facility] [id number] Social History Type Description Quantity Date Captured Comments Alcohol Use Details Unknown Caffeine Use Details Unknown Tobacco Use Status No Information Smoking Status No Information Sex Female Chief Complaint And Reason For Visit No Information Reason For Referral Reason For Referral No Information Plan Of Treatment Date Type Action Status Referral Ordered: [facility] (related to OA of 1st carpometacarpal joint) ordered Referral Referred To: [facility] [address], [place] [phone] Ordered: Referrals: [facility]. Consult ordered History Of Present [...]
--- OUTSIDE RECORDS SUMMARY | 2024-05-11 06:58 | XMS_ITS | Continuity of Care Document ---
Author Organization [facility] Address [address] [place] [address] Phone Care Team Providers Care Roll Table Operator Name Role Phone Yunior Logan Unavailable Unavailable [...] Active Procedures Procedure Date Office/Outpatient Visit,[facility] 2022 Advance Directives Directive Yes / No Effective Date File Name No Information Encounters Encounter Description Practice Location Reason(s) For Visit Diagnoses Date Provider Providers Copied on Encounter [facility], [address], [place], [id number], [place] tel:[phone] No Information Valeria Mojica. [facility], [address], [address], [place], [id number] , [place]. tel:[phone] Office/Outpat ient Visit,[facility], [facility], [address], [place], [id number], [place] tel:[phone] [facility] Other spondylosis, lumbar regionLow back painOther intervertebral disc degeneration, lumbar region 3 Valeria Mojica. [facility], [address], [address], [place], [place], [id number] , [place]. [phone] Referring Provider: Dong Zheng[address], [address]. tel:[phone] Family History Family Member Type Diagnosis Age At Onset No Information Payers Payer name Insurance type Covered democrat ID Authoriza tishanice(s) [facility] [id number] Out Of State [id number] Social History Type Description Quantity Date Captured [...]
--- OUTSIDE RECORDS SUMMARY | 2024-05-11 06:58 | XMS_ITS | Clinical Summary ---
Author Organization [facility] Address [address] , [address] [facility] [place] [address] Phone Care Team Providers Care Test Design Engineer Name Role Phone Records, Outside Unavailable Unavailable Conditions or Problems Problem Name Problem Code Onset Date Status Entry Date Provider Comment Standard Description Annotate Radicular pain 42594833 (SNOMED CT) Active Sushant Barth MD Radicular pain Leg pain, right 886791924 (SNOMED CT) Active Sushant Barth MD Pain in right lower limb Low back pain 428609470 (SNOMED CT) Active Sushant Barth MD Low back pain Medications No information available. Medications Administered No information available. Allergies, Adverse Reactions, Alerts No information available. Results Date Name Value Unit Range Flag Description Internal Other: Authorizatio n - OBS [email or web address] Yes Authoriza tion: Release of Information - Authorize [facility] - Payment and Healthcare Operations ROIAUTHOTHER Yes Authoriz ation: Release of Information - Authorize Others/Insurance - Payment and Healthcare Operations HIECONSENT Yes Consent To Release information to the Health Information Exchange (HIE) [email or web address] Yes Authorizat ion: Authorization for [facility] to leave messages, voicemail, send text messages, send emails AUTHRELHCARE Yes Authoriz ation: Release/Retrieval of Information to/from Healthcare Facilities, Pharmacy Benefit Payers and Providers AUTHPRIVPRAC Yes Authoriz ation: Notice of privacy practices AUTHBENEFIT Yes Authoriza tion: Assignment of Benefits and Payment Agreement Internal Other: Verbal Autho rization/Emergency Contact - OBS VERBAL_EMER DONE Verbal au thorization and emergency contact Plan of Care No information available. Procedures Code Procedure Name Date Entry Date CPT-98831 Nerve Conduction 5-6 studies CPT-06773 EMG with NCS (5+ muscles) - 1 limb 09/11 Vital Signs No information available. Immunizations No information available. Advance Directives No information available.
--- OUTSIDE RECORDS SUMMARY | 2024-05-11 06:58 | XMS_ITS | Clinical Summary ---
Author Organization [facility] Address [address] [place] [address] Care Team Providers Care Senior Research Fellow Name Role Phone No Primary/Referring, Phy Primary Care Provider Unavailable Source Comments You are receiving this document as you are listed as the primary care provider,follow-up provider, or the patient has been referred to you for consultation.This is in compliance with the Medicare and[facility] EHR Incentive Program,which states Providers who transition their patient to another setting of careor provider of care or refers their patient to another provider of care shouldprovide summary care record for each transition of care or referral. [employer] Allergies Active Allergy Reactions Criticality Noted Date Comments Kiwi Extract Other, see comments 10/07/2021 Irritation in mouth Medications ALBUterol sulfate HFA 108 (90 Base) MCG/ACT [...] knee, other joint pain). 100 g 3 10/04/19 21 Active TREL ELLIPTA 100-62.5-25 MCG/INH AEPB Inhale 1 Puff daily. 01/23/20 Active BREZTRI AEROSPHERE 160-9-4.8 MCG/ACT AERO Inhale 2 Puffs two times a day. 07/23/19 Active halobetasol (ULTRAVATE) 0.05 % ointment Apply 1 Application topically daily. 07/19/19 Active hydrOXYzine pamoate (VISTARIL) 25 MG capsule Take 1 Capsule (25 mg) by mouth three times a day as needed. 07/18/19 Active methocarbamol (ROBAXIN) 500 MG tablet Take 1 Tablet (500 mg) by mouth two times a day. 08/28/19 23 Active traZODone (DESYREL) 50 MG tablet Take 1-3 Tablets (50-150 mg) by mouth at bedtime as needed. 07/13/19 Active venlafaxine (EFFEXOR) 75 MG tablet Take 1 Tablet (75 mg) by mouth daily. 09/10/19 23 Active TEZSPIRE 210 MG/1.91ML SOAJ pen Inject 1.91 mL (210 mg) subcutaneously every 4 weeks. 10/31/19 24 Active methotrexate 2.5 MG tabletIndicati ons:Rheumatoid Arthritis Take 8 Tablets (20 mg) by mouth once every week. Indications: Rheumatoid Arthritis 96 Tablet 3 11/02/19 24 Active etanercept (ENBREL SURECLICK) 50 MG/ML pen injectionIndic ations:Rheumat oid Arthritis,M06. 00 Inject 50 mg subcutaneously once a week. Indications: Rheumatoid Arthritis, M06.00 4 Each 7 11/02/19 24 Active celecoxib (CELEBREX) 200 MG capsule Take 1 Capsule (200 mg) by mouth two times daily as needed for Pain. 135 Capsule 3 05/04/19 25 Active celecoxib (CELEBREX) 200 MG capsule Take 1 Capsule (200 mg) by mouth every 24 hours as needed for Pain. 90 Capsule 3 05/04/19 24 025 Discontin ued(*Med change OR same med OR reorder, new dose/dire ctions) Active Problems Problem Noted Date Diagnosed Date Disorder of rotator cuff, left 09/06/2018 Seronegative rheumatoid arthritis 05/10/2018 Sicca syndrome 05/10/2018 Asthma, mild intermittent 05/10/2018 Irritable bowel syndrome wit h both constipation and diarrhea 05/10/2018 Trochanteric bursitis, right hip 05/10/2018 Primary osteoarthritis of both first carpometaca rpal joints 05/10/2018 care home current use of therapeutic drug 2018 Encounters Date Type Department Care Team Description 05/04/2024 11:15 AM MEDICAL ESTHETICIAN Office Visit Rheumatology at [facility] [place] [phone] Israel Grace MD Seronegative rheumatoid arthritis (HRC) (Primary Dx); care home current use of therapeutic drug; Primary osteoarthritis of both first carpometacarpal joints; 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 current use of non-steroidal anti-inflammatories (NSAID) 04/18/2024 12:00 PM MEDICAL ESTHETICIAN Lab Visit Laboratory at [address] [phone] Seronegative rheumatoid arthritis (HRC) from Last 3 Months Immunizations Immunization Administration Dates Next Due Flu Vac (3+ yrs) 12/15/2008 Flu Vac Preserv Free (3+yrs) 01/07/2024, 01/16/2014,12/20/2012,2011,12/17/2010 Flublok (RIV4) 01/07/2019 Influenza (Flucelvax), Prese rv Free QIV 12/22/2022,12/19/2021 Influenza IIV4 (Quadrivalent ) 0.5mL (00175) 12/23/2020,01/13/2020,01/04/2018,2016,01/03/2016,01/02/2015 Influenza, Unspecified Formulation 12/23/2020 Moderna Bivalent 12+ 12/26/2021 Moderna COVID-19 12+ 01/07/2024 Moderna Monovalent 12+ 06/25/2021,2020,07/13/2020,2020 PCV13 (Prevnar) 01/13/2017 PCV20 ([id number]) 04/10/2023 PPSV23 (Pneumovax) 11/29/2009 Tdap 12/01/2023,05/21/2011 Zoster RZV (Shingrix) 02/21/2019,11/29/2018,10/29 Social History Tobacco Use Types Packs/Day Years Used Date Smoking Tobacco: Never Smokeless Tobacco: Never Alcohol Use Standard Drinks/Week Comments Yes 0 (1 standard drink = 0.6 oz pur e alcohol) Comments Unknown Sex and Gender Information Value Date Recorded Sex Assigned at Not on file Legal Sex Female 11:52 AM MEDICAL ESTHETICIAN Gender Identity Not on file Sexual Orientation Not on file Last Filed Vital Signs Vital Sign Reading Time Taken Comments Blood Pressure 114/91 10/07/2021 12:11 PM CDT Pulse 87 10/07/2021 12:11 PM CDT Temperature 36.6 C (97.8 F) 10/07/2021 12:11 PM CDT Respiratory Rate - - Oxygen Saturation - - Inhaled Oxygen Concentration - - Weight 88.9 kg (196 lb) 04/04/2020 11:40 AM MEDICAL ESTHETICIAN Height - - Body Mass Index - - Plan of Treatment Upcoming Encounters Date Type Department Care Team (Late st Contact Info) Description 11/02/2024 11:15 AM CDT Appointment Rheumatology at [facility] [address] [phone] Israel Grace MD [address] [place], [place] [phone] Health Maintenance Due Date Last Done Comments Cervical Cancer Screening Due 1968 Colon Cancer Screening Plan Due 1968 Mammogram 1968 HIV Screening (Preventive Services) 1984 Adult Preventive Visit 1986 HepB (1) 10/14/1987 Cholesterol 2013 DTaP/Tdap/Td (3 - Tdap) 11/30/2033 12/01/2023, 05/21 Hep C Screening (Preventive Services) Completed 05/10/2018 Zoster/Shingles Completed 02/21/2019, 04/2018, 11/18/2018 Pneumococcal Completed 04/10/2023, 12/28, 11/29/2009 COVID-19 Vaccine Completed 01/07/2024, , 06/25/2021, Additional history exists Influenza Completed 01/07/2024, 11/29, 12/19/2021, Additional history exists HepA Aged Out No longer eligi ble [...] Associated Diagnosis Comments COMPLETE BLOOD COUNT-W/DIFF Routine 04/18/2024 11:57 AM MEDICAL ESTHETICIAN Seronegative rheumatoid arthritis (HRC) CBC AND DIFFERENTIAL PANEL Routine 04/18/2024 11:57 AM MEDICAL ESTHETICIAN Seronegative rheumatoid arthritis (HRC) AST Routine 04/18/2024 11:57 AM MEDICAL ESTHETICIAN Seronegative rheumatoid arthritis (HRC) CREATININE / GFR Routine 04/18/2024 11:5 7 AM MEDICAL ESTHETICIAN Seronegative rheumatoid arthritis (HRC) HEPATITIS C ANTIBODY, WITH REFLEX Routine 05/10/2018 10:15 AM MEDICAL ESTHETICIAN Seronegative rheumatoid arthritis (HRC) from Last 3 Months or Most Recently Relevant to Health Maintenance Results * Creatinine / GFR (04/18/2024 11:57 AM MEDICAL ESTHETICIAN) Creatinine 0.65 0.55 - 1.02 mg/dL 04/18/2024 3:56 PM MEDICAL ESTHETICIAN [facility] GFR, Estimated >60 >60 mL/min/1. 73m2 04/18/2024 3:56 PM MEDICAL ESTHETICIAN [facility] Blood Venipuncture / Unknown 04/18/2024 11:57 AM MEDICAL ESTHETICIAN 04/18/2024 11:57 AM MEDICAL ESTHETICIAN us Israel Grace MD LAB_1 Final Result [facility] [address] * (ABNORMAL) Complete Blood Count-W/Diff (04/18/2024 11:57 AM MEDICAL ESTHETICIAN) [facility] WBC 4.9 3.5 - 10.5 x10(9)/L 04/18/2024 12:00 PM [facility] RBC 3.81(L) 3.90 - 5.03 x10(12)/L 04/18/2024 12:00 PM [facility] Hemoglobin 11.6(L) 12.0 - 15.5 g/dL 04/18/2024 12:00 PM [facility] HCT 36.0 34.9 - 44.5 % 04/18/2024 12:00 PM [facility] MCV 94.5 80.0 - 100.0 fL 04/18/2024 12:00 PM [facility] MCH 30.4 27.6 - 33.3 pg 04/18/2024 12:00 PM [facility] MCHC 32.2 31.5 - 35.2 g/dL 04/18/2024 12:00 PM [facility] RDW 14.1 11.9 - 15.5 % 04/18/2024 12:00 PM [facility] Platelets 224 150 - 450 x10(9)/L 04/18/2024 12:00 PM [facility] Neutrophil Absolute 3.1 1.7 - 7.0 10(9)/L 04/18/2024 12:00 PM [facility] Lymphocyte Absolute 1.2 1.0 - 4.8 10(9)/L 04/18/2024 12:00 PM [facility] Monocyte Absolute 0.5 0.2 - 0.9 10(9)/L 04/18/2024 12:00 PM [facility] Eosinophil Absolute 0.2 0.0 - 0.5 10(9)/L 04/18/2024 12:00 PM [facility] Basophil Absolute 0.0 0.0 - 0.3 10(9)/L 04/18/2024 12:00 PM [facility] Immature Granulocyte % 0.2 0.0 - 0.5 % 04/18/2024 12:00 PM [facility] Blood Venipuncture / Unknown 04/18/2024 11:57 AM MEDICAL ESTHETICIAN 04/18/2024 11:57 AM MEDICAL ESTHETICIAN Israel Grace MD LAB_1 Final Result [facility] [address] [place] [address], [facility] * AST (04/18/2024 11:57 AM MEDICAL ESTHETICIAN) AST (SGOT) 25 10 - 40 U/L 04/18/2024 3:56 PM MEDICAL ESTHETICIAN [facility] Blood Venipuncture / Unknown 04/18/2024 11:57 AM MEDICAL ESTHETICIAN 04/18/2024 11:57 AM MEDICAL ESTHETICIAN Israel Grace MD LAB_1 Final Result Performing Organization Address City/[facility] Co de Phone Number [facility] [id number] [place] [address] * [facility] - Hepatitis C Virus Indira with Reflex In-House (05/10/2018 10:15 AM MEDICAL ESTHETICIAN) Hepatitis C Antibody Nonreactive Nonreactive PN SOFT 05/10/2018 10:1 5 AM MEDICAL ESTHETICIAN 05/10/2018 12:34 PM MEDICAL ESTHETICIAN Narrative PN SOFT - 05/10/2018 2:42 PM MEDICAL ESTHETICIAN [place] [address] CLIA number [id number] Israel Grace MD LAB_1 Final Result Performing Organization Address [facility] Co de Phone Number PN SOFT [address] [place] [phone] from Last 3 Months or Most Recently Relevant to Health Maintenance Insurance [facility] OOS [facility] [employer] [employer] Care Teams Senior Research Fellow Relationship Specialty Start Date End Date No Primary/Referring, Kathryn PCP - General 04/12/19
--- OUTSIDE RECORDS SUMMARY | 2024-05-11 06:58 | XMS_ITS | Encounter Summary ---
Author Organization [facility] Address [address] [place] [address] Care Team Providers Care Music Copyist Name Role Phone No Primary/Referring, Phy Primary Care Provider Unavailable Reason for Visit * Reason Comments Follow-up Encounter Details Date Type Department Care Team (Late st Contact Info) Description 05/04/2024 11:15 AM DIRECTOR HOME HEALTH Office Visit Rheumatology at [facility] [address] [phone] Israel Grace MD [address] [place], [place] [phone] Seronegative rheumatoid arthritis (HRC) (Primary Dx); [facility] current use of therapeutic drug; Primary osteoarthritis of both first carpometacarpal joints; 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-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 anti-inflammatories (NSAID) Social History Tobacco Use Types Packs/Day Years Used Date Smoking Tobacco: Never Smokeless Tobacco: Never Alcohol Use Standard Drinks/Week Comments Yes 0 (1 standard drink = 0.6 oz pur e alcohol) Comments Unknown Sex and Gender Information Value Date Recorded Sex Assigned at Not on file Legal Sex Female 11:52 AM DIRECTOR HOME HEALTH Gender Identity Not on file Sexual Orientation Not on file documented as of this encounter Patient Instructions * Patient Instructions* Israel Grace MD - 05/04/2024 11:15 AM DIRECTOR HOME HEALTH For days with more pain, you could take a 2nd celecoxib (Celebrex). Typically, its best to spread it out, but you can take 400 mg once, but that's a big dose, easier your body to take 200 mg twice daily instead. Do this only on bad days. Typically for surgery, to lower infection, we recommend no Enbrel within 7 days and then hold probably 10-14 days after. Methotrexate doesn't need to be held, but if you miss a dose, that's fine. Celebrex has no blood thinning effect, but most doctors know that, so hold the celebrex 5-7 days before surgery and can resume 5-7 days after at the discretion of your surgery. Continue quarterly labs. Recheck in 6 months. CTOR [facility] documented in this encounter Progress Notes * Israel Grace MD - 05/04/2024 11:15 AM CST RHEUMATOLOGY RECHECK This note was generated with voice activated data management specialist software and may contain typographical and word substitution errors. CC: Follow-up seronegative RA with sicca complex, osteoarthritis of the 1st CMC joints and knees, trochanteric bursitis HPI: I initially saw her in April,. She had a diagnosis of seronegative rheumatoid arthritis in [place] many years ago, later had followed with Dr. Vincent and subsequently established here.She has sicca complex but negative Sjogren's serologies. She is negative for rheumatoid factor, negative CCP, negative extractable nuclear antigens. Hand x-ray showed significant DJD at the 1st CMC joints. Prior Meds: Prednisone Hydroxychloroquine - tolerated, later stopped Methotrexate Enbrel Celebrex She is current on shingles vaccines. She does feel the Celebrex has been helpful for day-to-day arthralgias. She has a history of trochanteric bursitis and right knee anserine bursitis. She is status post-surgery on the right hip arthroscopically for labral tear and femoroacetabular impingement, had reasonably good improvement. She notes some soreness in her ankles [...] nature. She does use Voltaren gel, Celebrex typically daily and in April 2024 by authorized up to twice daily on bad days. At her visit in October, she did have some more pain at the left 3rd MCP, we increased her methotrexate from 15 mg weekly to 20 mg weekly. This is a six-month follow-up visit. Most recent relevant monitoring labs show normal creatinine, hemoglobin mildly low 11.6 normal white count and platelets, normal AST. Interval history is reviewed. With regard to her anemia, she has had some female issues including some postmenopausal bleeding, she has an upcoming transvaginal surgery, she did not give me the specifics but at least that may explain the anemia. Otherwise, she does notes some chronic soreness left 3rd MCP, some soreness base of the left 4th toe and also near the hypothenar area on the right hand. These come and go. 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 ADR/ALLERGIES: Updated in EMR OBJECTIVE: VS: Per flow sheet. General: NAD. Eyes: Externally clear. Chest: CTA. Musculoskeletal: All 4 limbs are examined. She has squaring and tenderness bilateral 1st CMC joints, mild tenderness over the left 3rd MCP which was not swollen. It was mild tenderness base of the left 4th toe. Mild tenderness near the pisiform bone of the right wrist Cutaneous: No rashes, nail fold capillary changes, Raynaud's, or psoriasis ASSESSMENT: 1: Seronegative RA 2: Sicca complex with negative Sjogren's serologies 3: Osteoarthritis 1st CMC joints and knees 4: Status post surgery on the right for femoral acetabular impingement 5: MCFP immunomodulatory medication therapy 6: Genu valgum and probably secondary ankle discomfort 7: Low back pain and sciatica, follows at [facility] PLAN: 1: Clinically I do not see signs of active RA. She has some arthralgia at CMC, left 3rd MCP, base of the left 4th toe. These are intermittent. I authorize the 2nd dose of celecoxib on bad days for her today. 2: She has an upcoming transvaginal surgery for postmenopausal bleeding. I did suggest holding Enbrel 7 days before and about 10 days after. I also suggest holding Celebrex at least 5 days prior although it does not have anti-platelet effect. 3: Continue with quarterly labs CBC AST creatinine and I will see her again in 6 months which is her preferred interval. Copy to Dong Zheng PA-C, [facility] documented in this encounter Plan of Treatment Upcoming Encounters Date Type Department Care Team (Late st Contact Info) Description 11/02/2024 11:15 AM CDT Appointment Rheumatology at [facility] [address] [address] Israel Grace MD [address] [place] [address] documented as of this encounter Visit Diagnoses Diagnosis Seronegative rheumatoid arthritis (HRC)- Primary Rheumatoid arthritis [facility] current use of therapeutic drug Primary osteoarthritis of both first carpometacarpal joints Primary localized osteoarthrosis, 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
[2024-05-11] MEDS: LACTATED RINGERS 500 ML 500 ML 100 ML IV (07:15)
[2024-05-11] MEDS: SODIUM CHLORIDE 0.9 % (FLUSH) 10 ML SYRINGE IVF (07:15)
[2024-05-11 07:27] VITALS: BP 125/84; PULSE 94; RESP 16; TEMP 36.4; O2SAT 96; BMI 29.1
[2024-05-11 07:27] LABS: Hemoglobin* 13.1 gm/dL (12.0-16.0)
--- NOTE | 2024-05-11 08:17 | W.PM.H&PU ---
History & Physical Update History & Physical Update H&P Reviewed and patient assessed: No changes noted H&P Updates: Patient has not had any additional episodes of vaginal bleeding since we last spoke.
--- NOTE | 2024-05-11 08:19 | W.PM.GYNPROC ---
Procedure Note Time Seen by Provider: 08:19 Date of procedure: 05/11/24 Will [facility] bill your pro fee for this procedure?: Yes Pathology: specimen obtained, sent to pathology (Endometrial curetting/ polyps ) Procedure Description: Preoperative diagnosis: Maranda 53 year-old with here with postmenopausal bleeding after starting HRT. Pelvic US showed possible endometrial polyp. Postoperative diagnosis: Endometrial polyps Procedure: Hysteroscopy, dilation and curettage, polypectomy, Mirena IUD insertion. Anesthesia: Conscious sedation with paracervical block. Surgeon: Ladonna Melgoza MD Estimated blood loss: <5 mL Specimen: Endometrial curettings to pathology. Findings: Exam under anesthesia: Cervix palpates normal. Uterus: anteverted position, 5 week size, mobile, without nodularity/masses palpable. Adnexa were without fullness or nodularity. On hysteroscopy: Atrophic endometrium. 1 large polyp midline at uterine fundus. Few small polyps at uterine fundus as well. Procedure: Maranda was taken to the operating where conscious sedation was found to be adequate. She was placed in the dorsal lithotomy position. An exam under anesthesia was performed with findings stated above. She was then prepped and draped in normal sterile manner. A bivalve metal speculum was placed in the vaginal canal. The cervix and vaginal canal appear normal. A paracervical block was placed using 1% lidocaine with epinephrine: 5 mL injected at the 4 and 8 o'clock positions on the cervix. The anterior lip of the cervix was then grasped with a long tenaculum. The cervix was dilated to Hegar 6. The uterus sounded to 7 cm. The hysteroscope advanced into the uterus and a diagnostic hysteroscopy was performed with findings stated above. Normal saline was used as the insufflation medium. Soft tissue shaver was used to perform polypectomy and global curetting. The uterus and documented a normal appearing uterine cavity at the end of the procedure. Fluid deficit at the end of the procedure 160mL. Total fluid: 925mL Attention was then turned towards the Mirena IUD insertion. The IUD is loaded into the insertion tube, inserted to the sounded depth, and the IUD is deployed. Insertion tube was removed. Strings are trimmed to 3 cm. There were no complications with insertion. Hysteroscope was used to confirm IUD placement. IUD is intrauterine and arms are appropriately at the fundus. The hysteroscope and tenaculum clamp were removed from the uterus and cervix. Excellent hemostasis noted. Nothing was used for hemostasis. The patient tolerated the procedure well. Sponge, lap and instruments counts were correct at the end of the procedure. The patient was awakened from anesthesia and taken to the recovery area in stable condition. Surgical debrief performed at the end of the procedure.
[2024-05-11] MEDS: LIDOCAINE 1%-EPI 1:100,000 20 ML INFILTRATI (08:41)
--- NOTE | 2024-05-11 09:03 | SUR.OPER ---
DEFICIT 160
[2024-05-11 09:04] VITALS: BP 128/82; PULSE 85; RESP 16; TEMP 36.8; O2SAT 98
--- NOTE | 2024-05-11 09:07 | W.ANESCHARGE ---
Anesthesia Charges Start Date/Time Anesthesia Start Date: 05/11/24 Anesthesia Start Time: 08:26 Stop Date/Time Anesthesia Stop Date: 05/11/24 Anesthesia Stop Time: 09:07 Coding CPT Codes CPT Codes: ANESTH HYSTEROSCOPE/GRAPH - 26966 ([id number]) P2 - PATIENT W/MILD SYST DISEASE, QX - ELEMENTARY PRINCIPAL SVC W/ MD MED DIRECTION, QK - AIR DISPATCHER 2-4 CNCRNT ANES PROC
[2024-05-11 09:15] VITALS: BP 109/81; PULSE 75; RESP 16; O2SAT 99
[2024-05-11] MEDS: hydrOXYzine pamoate 25 MG CAPSULE PO (09:22)
[2024-05-11] MEDS: ACETAMINOPHEN 500 MG TABLET 1000 MG PO (09:22)
--- NOTE | 2024-05-11 09:42 | W.ANESCHARGE ---
Anesthesia Charges Start Date/Time Anesthesia Start Date: 05/11/24 Anesthesia Start Time: 08:26 Stop Date/Time Anesthesia Stop Date: 05/11/24 Anesthesia Stop Time: 09:07 Coding CPT Codes CPT Codes: ANESTH HYSTEROSCOPE/GRAPH - 65495 ([id number]) QK - LITHOGRAPHIC PRESS FEEDER 2-4 CNCRNT ANES PROC, QX - WINDOW GLASS CUTTER OFF SVC W/ MD MED DIRECTION, P2 - PATIENT W/MILD SYST DISEASE
[2024-05-11 09:45] VITALS: BP 121/82; PULSE 70; RESP 16; O2SAT 99
== END 2024-05-11 10:00 | disposition home or self-care (01) ==
PROVIDERS: PCP Physician Assistant Medical; Visit Provider Obstetrics & Gynecology
PROC: 0UDB8ZZ Extraction of Endometrium, Via Natural or Artificial Opening Endoscopic (ICD-10-PCS; CPT 58558; principal; 2024-05-11 08:15)
DX: N95.0 Postmenopausal bleeding (principal); N84.0 Polyp of corpus uteri; Z79.890 Hormone replacement therapy
CPT/HCPCS: 58558; 58300; 00952; 36415; 85018; 86850; 86900; 86901; 88305; A9270; C1782; J1100; J1885; J2250; J2405; J2704; J3490; J7120; J7298

== ENCOUNTER 2024-05-18 13:25 | Outpatient (CLI) | payer BC, SELFPAY ==
--- NOTE | 2024-05-18 13:30 | CRLHL7_ITS ---
For Patients: As a result of the Century Cures Act, medical imaging exams and procedure reports are released immediately into your electronic medical record. You may view this report before your referring provider. If you have questions, please contact your health care provider. XR DXA Bone Mineral Density (BMD) Reason for exam: Postmenopausal. Other specified disorders of bone density. Current height (in): 65. Weight (lb): 167. Menopause age: 48. Ethnicity: White. 1. Have you had a previous hip or vertebral fracture? No. 2. Have you had any fractures during your adult life which did not result from significant trauma (e.g., auto accident)? Yes. 3. Did either of your parents have a hip fracture? No. 4. Do you smoke? No. 5. Have you ever taken Glucocorticoids? No. 6. Do you have rheumatoid arthritis? Yes. 7. Do you have secondary osteoporosis? No. 8. Do you drink 3 or more alcoholic drinks per day? No. 9. Are you being treated for osteoporosis? No. 10. Have you ever taken any of the following medications: Actonel, Evista, Fosamax, Miacalcin, Reclast, Boniva, Forteo, HRT (i.e., estrogen/hormone therapy), Protelos, Prolia, Vitamin D, Calcium, other ??? please specify. ANSWER: Yes, vitamin D and HRT (i.e., estrogen/hormone therapy). 11. Do you have any of the following medical conditions: Anorexia or bulimia, asthma or emphysema, end stage renal disease, hyperparathyroidism, any seizure disorders, cancer, inflammatory bowel diseases, hysterectomy, other ??? please specify. ANSWER: Yes, inflammatory bowel diseases. 12. What was your maximum height (inches)? 65. 13. Do you perform weight bearing exercise regularly? No. 14. Do you regularly consume dairy products? Yes. 15. Do you drink caffeinated beverages? Yes. 16. At what age did your period start? 8. 17. Are you premenopausal? No. 18. How many full-term pregnancies have you had? Not provided. 19. Have you ever missed your period for more than 6 months in a row (not including or menopause)? No. TECHNIQUE: Bone mineral density study was performed using the [employer]. FINDINGS: The results of the study expressed as bone mineral density (BMD) are as follows: Lumbar spine L1 to L4: BMD: 0.897 g/cm2. T-score: -1.4. Z-score: -0.3 Neck Left: BMD: 0.694 g/cm2. T-score: -1.4. Z-score: -0.3 Right: BMD: 0.826 g/cm2. T-score: -0.2. Z-score: 0.9 Total Left: BMD: 0.848 g/cm2. T-score: -0.8. Z-score: -0.1 Right: BMD: 0.953 g/cm2. T-score: 0.1. Z-score: 0.8 IMPRESSION: Osteopenia. *Comparison exams done prior to 08/2019 were performed on different unit, [employer]. FRAX 10-year Fracture Risk Major Osteoporotic Fracture: 15% Hip Fracture: 1.3% Reported Risk Factors: [place] () Neck BMD=0.694, BMI=27.8, previous fracture, rheumatoid arthritis Chris Briggs M.D. Body/Diagnostic Radiologist [email or web address]/Dictated by: Chris Briggs MD @ 05/20/2024 7:55:00 AM (Electronically Signed)
== END 2024-05-18 13:26 | disposition home or self-care (01) ==
LOC: RAD 13:26
PROVIDERS: PCP Physician Assistant Medical; Visit Provider Physician Assistant Medical
DX: M85.89 Other specified disorders of bone density and structure, multiple sites (principal); M06.9 Rheumatoid arthritis, unspecified; Z78.0 Asymptomatic menopausal state
CPT/HCPCS: 77080

== ENCOUNTER 2024-07-07 10:54 | Outpatient (CLI) | payer BC, SELFPAY | END 2024-07-07 10:55 | disposition home or self-care (01) | LOC: NFLDREF 07-11 20:17 | PROVIDERS: PCP Physician Assistant Medical; Referring Provider Physician Assistant Medical; Visit Provider Physician Assistant Medical | DX: E05.90 Thyrotoxicosis, unspecified without thyrotoxic crisis or storm (principal) | CPT/HCPCS: 84439; 84443 ==

== ENCOUNTER 2025-03-08 11:17 | Outpatient (CLI) | payer BC, SELFPAY ==
--- NOTE | 2025-03-08 11:30 | CRLHL7_ITS ---
For Patients: As a result of the Century Cures Act, medical imaging exams and procedure reports are released immediately into your electronic medical record. You may view this report before your referring provider. If you have questions, please contact your health care provider. INDICATION: BILATERAL SCREENING MAMMOGRAM, ASYMPTOMATIC 54 Y/O FEMALE COMPARISON: MAMMOGRAM 02/15/2024, 02/11/2023, 01/16/2022 TECHNIQUE: Digital mammogram in CC and MLO projections including computer-aided detection (CAD) and tomosynthesis. BREAST COMPOSITION: There are scattered areas of fibroglandular density. FINDINGS: No suspicious findings. ASSESSMENT: BI-RADS 1 Negative RECOMMENDATION: Annual screening mammogram. A lay language report of this examination will be provided to the patient. Dictated by: Gerard Walsh MD @ 03/08/2025 12:57:30 (Electronically Signed)
== END 2025-03-08 11:18 | disposition home or self-care (01) ==
LOC: MAMMO 11:18
PROVIDERS: PCP Physician Assistant Medical; Visit Provider Physician Assistant Medical
DX: Z12.31 Encounter for screening mammogram for malignant neoplasm of breast (principal)
CPT/HCPCS: 77063; 77067